=== PATIENT | male | born 1940 | race Caucasian/White ===

== ENCOUNTER 2017-04-16 16:12 | Inpatient (IN) | payer MEDICARE ==
[~2017-04-16] VITALS: Ht 180.3 cm; Wt 119.2 kg
[2017-04-16] VITALS (17 sets, daily range): BP systolic 100–173; BP diastolic 46–88; PULSE 71–105; RESP 13–25; O2SAT 94–95
[~2017-04-16 16:12] MED LIST: ASPI-973 PO; HYDR25TA4 PO; LISI-567 PO; LOVA20TA PO
--- NOTE | 2017-04-16 16:24 | ED.REPORT ---
HPI-Chest Pain 40 and Over Date of Service Apr 16, 2017 ED Provider: Dr. Dinero Pt is a 76 y/o male w/ a hx of HTN, HLD, COPD, presenting to the ED due to profuse diaphoresis onset prior to arrival. The patient had a pharmacological stress test today which was deemed abnormal and left the hospital to go to [facility]. At 16:20 he began to experience persistent upper back pain, profound diaphoresis, nausea, and dyspnea. Due to the abnormal stress test, an appointment with engine mechanic Dr. Mcqueen was made for him tomorrow. The patient states he has been experiencing similar back pain intermittently with exertion for the past 1 month which is why he had the stress test performed. He takes ASA daily but was told to not take any today because of the stress test. He is not nauseated at time of interview. He denies any history of previous MS. Stress test impression below: Abnormal study. Moderate to large reversible perfusion defect involving the mid to distal anteroseptal myocardium as well as the apex, in keeping with ischemia. Associated decreased wall thickening and segmental hypokinesis. Decreased exercise capacity. Normal left ventricle stress ejection fraction. Nursing Notes Stated Complaint: HEART ATTACK SYMPTOMS Nursing Notes Reviewed: Yes ([employer], [email or web address] not reconciled) Allergies: Coded Allergies: No Known Allergies (Verified Allergy, Unknown, 04/16/17) Scheduled Aspirin (Aspirin) 81 Mg Tablet 81 MG PO DAILY Beclomethasone Dipropionate (Qvar) 8.7 Gm Aer.w.adap 1 PUFF INHALATION BID Hydrochlorothiazide (Hydrochlorothiazide) 25 Mg Tablet 25 MG PO DAILY Lisinopril (Lisinopril) 20 Mg Tablet 20 MG PO QPM Lovastatin (Lovastatin) 20 Mg Tablet 20 MG PO HS Metoprolol Succinate ER (Metoprolol Succinate ER) 25 Mg Tab.er.24h 12.5 MG PO DAILY Tiotropium [place] (Spiriva) 18 Mcg Cap.w.dev 18 MCG IH DAILY Scheduled PRN Albuterol HFA (Proair HFA) 8.5 Gm Hfa.aer.ad 2 PUFFS INHALATION Q4H PRN PRN For Shortness of Breath Nitroglycerin SL (Nitroglycerin SL) 0.4 Mg Tab.subl 0.4 MG SL Q5MIN PRN PRN For Chest Pain General Time Seen by MD: 16:26 Chief Complaint Back pain Hx Obtained From: Patient Arrived By: Walk-in Sudden in Onset?: No Onset Occurred: Just prior to arrival Symptom Duration: Since onset Location: : Back Quality: Painful Severity: Current: Moderate Severity: Maximum: Moderate Recent Healthcare: Recent doctor visit, Previous diagnosis Past Medical History Past Medical History Notes: Had stress test today (04/16/17): Stress test impression below: Abnormal study. Moderate to large reversible perfusion defect involving the mid to distal anteroseptal myocardium as well as the apex, in keeping with ischemia. Associated decreased wall thickening and segmental hypokinesis. Decreased exercise capacity. Normal left ventricle stress ejection fraction. Past Medical History Hypertension Hyperlipidemia COPD Reports: Coronary artery disease (diagnosed today 04/16/17) Past Surgical History Denies Family History Noncontributory Smoking History Former Smoker Social History Alcohol Use: "Social" Drug Use: Denies drug use Ambulatory Status Independent Review of Systems Constitutional: Denies: Chills, Fever Respiratory: Denies: Non-productive cough, Shortness of breath Cardiovascular: Reports: Dyspnea on exertion GI: Reports: Nausea, Denies: Abdominal pain, Vomiting Musculoskeletal: Reports: Back pain Skin: Reports Diaphoresis Complete sys rev & neg: except as marked. Physical Exam Initial Vital Signs Vital Signs (First) Date Time Temp Pulse Resp B/P Pulse Ox O2 Delivery O2 Flow Rate FiO2 04/16/17 16:30 36.2 105 24 173/88 95 Room Air Initial VS: Reviewed, Vital signs abnormal Head / Eyes: Atraumatic, Normocephalic, PERRL ENT: Mucous membranes moist, Conjunctiva normal, No scleral icterus Neck: Supple, Full range of motion Extremities: Vascular intact, Neuro intact, No swelling Neurologic: Alert, Oriented, Nonfocal Psychiatric: Mood/affect normal, Behavior normal, Normal thought content General/Constitutional: Awake, Alert, Cooperative, Not toxic appearing Distress / Hydration: Positive: Distress mild Appearance / Presentation: Positive: Uncomfortable Respiratory / Chest: Breath sounds NL, Breath sounds = bilat, No respiratory distress, No rales, No rhonchi, No wheezing, No retractions, No stridor Cardiovascular: Regular rhythm, Heart sounds NL, No gallop, No murmurs, No rubs , Cap refill not delayed, Peripheral circulation NL Heart Rate / Rhythm: Positive: Tachycardia Hypertensive Abdomen: Atraumatic, Soft, Non-tender Skin: Atraumatic, Color NL, Warm Color / Condition: Positive: Diaphoresis present Interpretation & Diagnostics Interpretation & Diagnostics: Please see that the patient had a stress test done earlier today that is abnormal for an area of reversible ischemia, with cardiac solder making laborer evalutation initially planned for tomorrow Lab Results Interpretation Result Diagram: 04/16/17 1620 04/16/17 1620 Test 04/16/17 16:20 White Blood Count 9.6th/mm3 (3.8-10.1) Red Blood Count 4.70mil/mm3 (4.40-5.80) Hemoglobin 15.3g/dL (13.8-17.2) Hematocrit 44.0% (41.0-50.0) Mean Corpuscular Volume 93.6fL (81-100) Mean Corpuscular Hemoglobin 32.6pg (27.0-35.0) Mean Corpuscular Hemoglobin Concent 34.8% (32.0-37.0) Red Cell Distribution Width 13.2% (12.3-15.4) Platelet Count 202bil/L (150-400) Neutrophils (%) (Auto) 57.1% (40-74) Lymphocytes (%) (Auto) 32.8% (14-46) Monocytes (%) (Auto) 7.1% (4-12) Eosinophils (%) (Auto) 2.6% (0-5) Basophils (%) (Auto) 0.2% (0-3) Sodium Level 130mEq/L (134-144) Potassium Level 4.0mEq/L (3.5-5.2) Chloride Level 90mEq/L (97-108) Carbon Dioxide Level 22mmol/L (18-29) Blood Urea Nitrogen 22mg/dL (8-27) Creatinine 0.94mg/dL (0.76-1.27) Estimat Glomerular Filtration Rate 83mL/min (>59) Glucose Level 175mg/dL (60-99) Calcium Level 9.7mg/dL (8.5-10.1) Magnesium Level 1.9mg/dL (1.6-2.6) Total Bilirubin 0.7mg/dL (0.0-1.2) Aspartate Amino Transf (AST/SGOT) 26U/L (0-50) Alanine Aminotransferase (ALT/SGPT) 20U/L (0-44) Alkaline Phosphatase 53U/L (25-160) Troponin T < 0.010ug/L (0.0-0.011) Total Protein 7.3g/dL (6.4-8.4) Albumin 4.4g/dL (3.4-5.0) Hold Dean Top Tube Received (Received) Lab Results Interpretation: CBC normal CMP normal (borderline hyperglycemia) Troponin #1 negative ECG Interpretation ECG Interpretation: Sinus tachycardia rate 105 ST segment depression V3-V6 No ST segment elevation Time: 16:26 Interpreted by: ED physician X-Ray Chest Interpretation Chest Xray Interpretation: IMPRESSION: No acute process. Dictated by: Marli Escobedo M.D. on 04/16/2017 at 16:59 Approved by: Marli Escobedo M.D. on 04/16/2017 at 17:00 View: Portable, 1 view Interpretation / Wet Read by: Interpret - Radiologist Re-Eval/Medical Decision Med Decision/Clinical Course This is a 76-year-old male with several risk factors to underwent a cardiac stress test today she developed classic anginal symptoms of exertional chest/ back discomfort over the past month. Stress test was markedly positive, and he was able to complete only 3 minutes of exercise before demonstrate positivity- with an area of moderate to sizable ischemia anteriorly. The patient was discharged, with outpatient plan for cardiology consultation and catheterization tomorrow. He went to [facility], were without exertion he suddenly developed back and chest discomfort with diaphoresis, nausea, and shortness of breath-to return to the emergency room and having active discomfort, stating he is concerned that he is having a heart attack. The patient appears ill: He is diaphoretic, clutching his chest, diaphoretic, hypertensive, and tachycardic. He had not yet had his daily aspirin. He has no overt findings of heart failure, and has no jugular vein distention, clear lungs, and normal heart tones. He has trace edema in the ankles. His EKG reveals ST depression suggestive of ischemia in V3 through V6, and I do not have access to prior old EKGs for comparison. However is clinical presentations highly concerning. Given his clinical presentation, given the ST depression identified on EKG, and given he just had a stress test diagnosis of coronary artery disease, I consulted cardiology. The initial diver pumper was with another procedure, and a second intervention was Dr. Garcia came and saw the patient, and the patient's being taken to the Card Checker for further management. He requests to be the customer service sales consultant, and the hospitalist being the admitting provider. The patient received aspirin, nitroglycerin, Dilaudid, Zofran, and was started on heparin. At time of admission the patient's clinically improved, but still having some back discomfort. Source of Hx: Old records Time of Eval: 16:38 Re-Evaluation/Progress Note: Pt rechecked. Informed pt of need for admission. Pt understands and agrees with plan for admission. All questions addressed. Consultation #1: Referral / Consult Name: Lino Hernandez MD Consulted With: Cardiology Call Returned at: 16:31 Link Knitting Machine Operator: Agrees with eval, Agrees with plan Note: Recommends contact [place] Consultation #2: Referral / Consult Name: Chao Edward MD Consulted With: Cardiology Call Returned at: 16:35 Link Knitting Machine Operator: Will see patient, Agrees with eval, Agrees with plan, Accepts admit Note: Admits to solder making laborer. Differential Diagnosis: Positive: Acute coronary syndrome, Acute myocardial infarct, Myocardial infarction, Negative: Asthma exacerbation, Congestive heart failure, Dysrhythmia, Esophageal rupture, Gun shot wound chest, Lorrie-Sears syndrome, Mitral stenosis, Mitral valve prolapse, Musculoskeletal pain, Pneumomediastinum, Pneumonia, Pneumothorax, Pulmonary edema, Pulmonary embolism, Rib fracture, Stab wound chest Counseled Regarding: Diagnosis, Lab results, Need for admission Discharge & Departure Primary Impression: Unstable angina Additional Impression: NSTEMI (non-ST elevated myocardial infarction) Disposition: ADMITTED TO HOSPITAL Discharge Condition All VS Reviewed: Yes Condition: Stable Referrals: Tracie Velazquez (PCP) Crit Care Except Billable Proc Time Spent: 30-74 minutes Services Performed: Patient management by me, Time spent at bedside, Reviewing test results, Reviewing imaging, Discussing patient care, Documentation in record Scribe Attestation Portions of this note were transcribed by Srikanth May. I, Dr. Dinero, personally performed the history, physical exam and medical decision-making; I reviewed and confirmed the accuracy of the information in the transcribed note. Signed by Jana Doty, 04/16/17 - [id number] copies to: Tracie Velazquez Matthew F MD Apr 16, 2017 16:23 SRIKANTH MAY Apr 16, 2017 16:31
[2017-04-16] MEDS ORDERED: Ondansetron 2 mg/mL 2 mL Inj IVPUSH ONE (16:25)
[2017-04-16] MEDS ORDERED: MeTOProlol 1 mg/mL 5 mL Inj IVPUSH ONE (16:30)
[2017-04-16] MEDS ORDERED: HYDROmorphone 0.5 mg/0.5 mL iSecure Syringe IVPUSH ONE (16:30)
[2017-04-16 16:32] LABS: BASOPHILS % (AUTO) 0.2 % (0-3); EOSINOPHILS % (AUTO) 2.6 % (0-5); MONOCYTES % (AUTO) 7.1 % (4-12); Mean Corpuscular Hemoglobin 32.6 pg (27.0-35.0); Mean Corpuscular Volume 93.6 fL (81-100); NEUTROPHILS % (AUTO) 57.1 % (40-74); Platelet Count 202 bil/L (150-400)
[2017-04-16] MEDS ORDERED: Heparin 5,000 Unit/mL Inj IVPUSH ONE ×2 (16:35→17:00)
[2017-04-16] MEDS ORDERED: Heparin 25,000 Unit/500 mL 0.45% NS Premix IV ONE (16:47)
[2017-04-16] MEDS ORDERED: Heparin 1,000 Units/500 mL NS Premix IV ONE (17:01)
[2017-04-16] MEDS ORDERED: Nitroglycerin 50,000 mcg/250 mL D5W Premix IV ONE (17:01)
[2017-04-16] MEDS ORDERED: Heparin 1,000 Unit/mL 10 mL Inj ONE (17:01)
[2017-04-16] MEDS ORDERED: Heparin 10,000 Unit/1,000 mL NS Premix IV ONE ×2 (17:02→17:50)
[2017-04-16] MEDS ORDERED: Dextrose 5% 250 ML IV ONE (17:02)
[2017-04-16] MEDS ORDERED: NitroPRUSSIDE 25,000 mCg/mL 2 mL Inj IV ONE (17:02)
--- NOTE | 2017-04-16 17:02 | DRSVH ---
PROCEDURE: X-RAY CHEST ONE VIEW, PORTABLE ([id number]) INDICATIONS: chest pain TECHNIQUE: One view of the chest was acquired. COMPARISON: [facility], CR, CHEST 2VW, 10/21/2014, 8:10. FINDINGS: Surgical changes and devices: None. Lungs and pleura: No pleural effusions or pneumothorax. Lungs are clear. Mediastinum: Mediastinal contours appear normal. Heart size is normal. Bones and chest wall: No suspicious bony lesions. Overlying soft tissues appear unremarkable. IMPRESSION: No acute process. Dictated by: Marli Escobedo M.D. on 04/16/2017 at 16:59 Approved by: Marli Escobedo M.D. on 04/16/2017 at 17:00
[2017-04-16 17:05] LABS: TROPONIN T < 0.010 ug/L (0.0-0.011)
[2017-04-16] MEDS ORDERED: fentaNYL-PF 50 mCg/mL 2 mL Inj ONE (17:06)
[2017-04-16 17:09] LABS: Magnesium 1.9 mg/dL (1.6-2.6)
[2017-04-16] MEDS ORDERED: ALBU8.5H2 INHALATION (19:17)
[2017-04-16] MEDS ORDERED: BECL8.7A6 INHALATION (19:17)
[2017-04-16] MEDS ORDERED: TIOT18CA3 IH (19:17)
[2017-04-16] MEDS ORDERED: NITR0.4T6 SL (19:17)
[2017-04-16] MEDS ORDERED: METO25TA99 PO (19:17)
--- NOTE | 2017-04-16 19:17 | NUR ---
Recovery [facility]REG staff recovering in 2013 until CCU has staff available. Pt received in 2013 at 1835. VSS. Stated 3/10 back discomfort, not like the pain that brought him in, which resolved after HOB able to be lifted to 30degrees. NTG at 20mcg/min per order. Dr. Edward called and heparin continued per Cardiac protocol. NS at 100ml/hr per order. Right groin stable without bleeding or hematoma. Groin precautions reviewed and frequent reminders given. Tele SR with PVC and bigeminal. Taking po fluids without nausea. Adm Margauxit RN working on admit. Report to Karen Zarate RN.
[2017-04-16] MEDS ORDERED: 0.9% Sodium Chloride 1,000 ML IV SCH (19:38)
[2017-04-16] MEDS ORDERED: Ondansetron 2 mg/mL 2 mL Inj IVPUSH PRN ×2 (19:40→20:15)
[2017-04-16] MEDS ORDERED: Polyethylene Glycol (PEG) 17 Gm Powder PO PRN (19:40)
[2017-04-16] MEDS ORDERED: Alum-Mag Hydrox-Simeth 30 mL Suspension PO PRN (19:40)
[2017-04-16] MEDS ORDERED: Atropine 1 mg/10 mL (Code) Syringe IVPUSH PRN ×2 (19:40→20:15)
[2017-04-16] MEDS ORDERED: Atropine 1 mg/10 mL (Code) Syringe IVPUSH ONE (19:42)
[2017-04-16] MEDS ORDERED: Sodium Chloride LOK Flush 10 mL Syringe IVFLUSH PRN (20:15)
[2017-04-16] MEDS ORDERED: 0.9% Sodium Chloride 400 ML (4 HRS) IV ONE (20:15)
[2017-04-16] MEDS ORDERED: Nitroglycerin 50 mg/250 mL D5W Premix IV SCH (20:15)
[2017-04-16] MEDS ORDERED: Heparin 25K Unit/500mL 0.45 NS 25,000 UNIT in IV Premix 1 EACH IV SCH (20:20)
--- NOTE | 2017-04-16 21:23 | PCM.HPMED ---
Subjective Date of Service Apr 16, 2017 Primary Provider: Admitting Physician: Primary Care Physician: Tracie Velazquez Attending Physician: Chao Edward MD Admit Status: From the Emergency Department Chief Complaint: Upper back pain, diaphoresis, nausea and dyspnea History of Present Illness: Admitting Jaclyn is a 76-year-old male with past medical history remarkable for hypertension and hyperlipidemia and COPD who presents to the [facility] emergency Department with persistent upper back pain, dyspnea, nausea and diaphoresis. The patient was seen today for a cardiac pharmacologic stress test which was deemed abnormal however the patient was discharged from the hospital with a follow-up appointment made with extractor filler Dr. Mcqueen for tomorrow April 17 at 9:30 AM. The patient states that he has been suffering with back pain described as medial to his right scapula and feels similar to somebody pounding on his back which worsens with exertion and improves with rest for approximately the last 6 weeks which was why he had a exercise EKG stress test last week and a follow-up nuclear medicine pharmacologic stress test today. At approximately 1620 the patient began to experienced symptoms of severe persistent upper back pain, profound diaphoresis, nausea and dyspnea while walking around [facility]. The patient states that his back pain in [facility] was more severe than ever before rated as a 10 out of 10 but with the same distribution and consistency. The patient denies any radiation of the pain into his jaw or arms. The patient states at the time of his stress test he had back pain but was significantly less severe rated at a 3 out of 10. The patient states that he sat down in the parking lot for 3 minutes prior to driving to [facility] emergency Department. He denies any history of previous [place]. The patient denies any review of systems consistent with headache, vomiting , diarrhea, numbness or tingling in his hands or feet. The patient states that his been seen by his PCP recently for his back pain and shortness of breath where he was diagnosed with COPD after spirometry and placed on 3 separate inhalers. The patient was seen in [facility] ED and diagnosed with an NSTEMI with ischemic ST changes on ECG were an immediate cardiology consultation was placed and the patient was taken to the cardiac label stitcher. Reports from the cardiology label stitcher nursing staff indicate that a critical lesion in the patient's LAD was unable to be intervened upon and he will be taken back to the cardiac label stitcher on April 17 in the a.m. Stress test impression below: Abnormal study. Moderate to large reversible perfusion defect involving the mid to distal anteroseptal myocardium as well as the apex, in keeping with ischemia. Associated decreased wall thickening and segmental hypokinesis. Decreased exercise capacity. Normal left ventricle stress ejection fraction. Review of Systems: A comprehensive review of systems was obtained and all are negative except for what is included in the history of present illness. Allergies Coded Allergies: No Known Allergies (Verified Allergy, Unknown, 04/16/17) Home Medications Aspirin 81 MG PO DAILY Hydrochlorothiazide 25 MG PO DAILY Metoprolol succinate ER 12.5 mg daily Lisinopril 20 MG PO DAILY Lovastatin 20 MG PO HS Albuterol HFA Qvar 1 puff twice a day Spiriva one puff daily Nitroglycerin SL 0.4 mg when necessary PMH Hypertension Hyperlipidemia COPD Kidney Stones GERD Reports: Coronary artery disease (diagnosed today 04/16/17) Surgical History Cholecystectomy Appendectomy Family History 3 Brothers have COPD and chronic respiratory failure Father had lung cancer, diverticulosis lived to 87 Mother lived to be 88 Social History Occupation: retired mechanical systems engineer and car sales Hx Alcohol Use: No Hx Substance Use: No Hx Tobacco Use: Yes Smoking Status: Former Smoker (quit 20 years prior) Years of Smokin Living Arrangement: with Family Exam Vital Signs Vital Sign - Last Date Time Temp Pulse Resp B/P Pulse Ox O2 Delivery O2 Flow Rate FiO2 04/16/17 19:23 36.6 88 16 106/56 95 Nasal Cannula 2.00 Exam General: Obese senior patient appears resting comfortably in a CCU bed in no acute distress Eyes: Pupils equal round and reactive to light, extraocular motion intact, anicteric sclera, noninjected conjunctiva HENT: Normocephalic atraumatic, moist mucous membranes without central cyanosis , oropharynx clear without cobblestoning Neck: Supple, trachea midline, no thyromegaly, no JVD or carotid bruits noted Cardiovascular: Distant heart sounds, Regular rate and rhythm, no murmurs rubs or gallops noted Lungs: Clear to auscultation bilaterally without wheezing or rhonchi Abdomen: Soft, nontender, distended at baseline, tympanic to percussion, no organomegaly noted : No Carmona catheter in place Extremities: Moderate pitting edema in bilateral lower extremities worse than right and left, no cyanosis or clubbing. Pulses intact bilaterally radial and dorsalis pedis, right femoral groin site is without hematoma or erythema Skin: Warm and dry, venous stasis changes noted in the left and right lower extremities bilaterally Neuro: Nonfocal neurologic exam, Cranial nerves II through XII are grossly intact Psych: Normal mood and affect Lab and Diagnostics Result Diagram: 04/16/17 1620 04/16/17 1620 X-Rays, CTs and MRIs X-RAY CHEST ONE VIEW, PORTABLE IMPRESSION: No acute process. Approved by: Marli Escobedo M.D. on 04/16/2017 at 17:00 Assessment & Plan Admitting Jaclyn is a 76-year-old male with past medical history remarkable for hypertension and hyperlipidemia and COPD who presents to the [facility] emergency Department with persistent upper back pain, dyspnea, nausea and diaphoresis. # Acute non-ST elevation myocardial infarction - In the [facility] emergency Department the patient had ST depression concerning for ischemia - On review of records the patient has had abnormal cardiac pharmacologic stress test performed on April 16 - Patient was taken to the cardiac label stitcher where critical lesions were reportedly noted in the LAD and RCA however the LAD was not able to be intervened upon by the patient will be taken back to the label stitcher on April 17 - Heart healthy diet, converted to nothing by mouth after midnight in preparation for cardiac catheterization - Heparin drip and nitroglycerin drip per cardiology recommendations - Currently holding most outpatient antihypertensives as the patient is a low normotensive - Cardiac rehabilitation - Lisinopril 20mg for cardiac remodeling # Acute mild hyponatremia - Sodium of 130 on admission - NS at 100 an hour for 4 hours per cath protocol # Acute mild hyperglycemia - Glucose of 175 at admission - No history of diabetes - Hemoglobin A1c ordered - Low correction scale regular insulin # Chronic Hypertension - Patient takes metoprolol ER, hydrochlorothiazide, lisinopril - Currently holding most outpatient antihypertensives as patient is low normotensive - Lisinopril 20mg for cardiac remodeling # Chronic Hyperlipidemia - Patient is on a home Lovastatin regimen - Atorvastatin 80 mg given acute coronary syndrome # Chronic obstructive pulmonary disease - Patient is on combination therapy with Qvar, Symbicort, albuterol rescue inhaler - Continue home inhaler therapy # History of gastroesophageal reflux disease - Patient is currently not on any prescription therapies - Famotidine IV while critically ill on heparin drip DVT prophylaxis: Currently on a heparin drip GI prophylaxis: Famotidine IV CODE STATUS full The patient is admitted to inpatient status with expected length of stay greater than to midnights given presenting symptoms, likely diagnosis, possible complications, and required treatment. Pain Evaluation: Adequate Pain Control GI Prophylaxis: Not indicated VTE Prophylaxis Indicated: Meets Criteria for Anticoag Therapy VTE Prophylaxis: Other (heparin drip) Resuscitation Status: CPR: Attempt Resuscitation Attending Statement The patient was seen and examined together with house staff on 04/16/2017 and I agree with the history, exam and plan as outlined in the note above. Bryant Beltran DO Apr 16, 2017 19:38 Elham Elena DO Apr 17, 2017 07:10
[2017-04-16] MEDS ORDERED: Pantoprazole 4 mg/mL 10 mL Inj IVPUSH SCH (21:25)
[2017-04-16] MEDS ORDERED: Glucose 40% Oral Gel 15 Gm Tube PO SCH (21:55)
[2017-04-16] MEDS ORDERED: Dextrose 10% 250 ML IV PRN ×2 (21:55)
--- NOTE | 2017-04-16 22:51 | CONS ---
[address] [address] CONSULTATION REPORT PATIENT: LALA JOSÉ : 1940 MR#: [id number] ADMIT: 04/16/2017 JOB ID: [id number] DATE OF SERVICE: 04/16/2017 REASON FOR CONSULTATION: Chest pain. REQUESTED BY: Dr. Lorenzo Dinero. HISTORY OF PRESENT ILLNESS: Thank you for referring this very pleasant gentleman. He has been having off and on discomfort in his back for the last month to month and a half. It occurred with [id number]-[id number] exertion. For instance, mowing his lawn or picking up anything heavy. He would get markedly short of breath. It was initially ascribed to COPD. He was subsequently referred to a chiropractor. Finally, his primary care physician advised a stress test. This stress test was done earlier today. The stress test was markedly abnormal. He had reduced functional capacity. He could barely complete stage 1 of Momo protocol. His stress test showed a large area of anterior ischemia consistent with disease in the LAD. The patient was scheduled for a heart catheterization tomorrow. The patient went to [facility] today. While he was in [facility], he started getting short of breath. This was accompanied by diaphoresis as well as an upset stomach. He felt like throwing up. He had the same pain in his back as well. He came back to the emergency department. EKG showed diffuse ST-T abnormality. I was asked to see him urgently. At the time of interview, the patient's chest discomfort had all but settled. candlemaking laborer had already been activated. PAST MEDICAL HISTORY: Hypertension, dyslipidemia, denies diabetes, prior strokes. MEDICATIONS AT HOME: He takes three medications, two for his blood pressure, one for his cholesterol. He is not sure of the names. ALLERGIES: None. PRIOR SURGICAL HISTORY: He has had a gallbladder removed. FAMILY HISTORY: Noncontributory. Negative for premature coronary artery disease. PERSONAL HISTORY: He quit smoking 18 years ago. 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 He denies any alcohol abuse. REVIEW OF SYSTEMS: Comprehensive review of system was done and is as per HPI. More pertinently no GI or bleeding. No upcoming surgeries. No strokes. No TIAs. EXAMINATION: Obese, elderly gentleman in mild distress. He appears to be somewhat anxious. Neck is supple. No JVD. Chest: Clear. Heart sounds: S1, S2, regular. No gallops. No murmurs. Abdomen is soft. Extremities 1+ edema. Hyperpigmentation of both lower extremities is noted. Distal pulses were diminished. BASKET MAKER: Alert and oriented x3. ASSESSMENT/PLAN: This gentleman presents with unstable angina. He needs to have urgent angiography given the fact that he is having chest discomfort with minimal activity. I have discussed the risks, and treatment options available to the patient. He is willing to proceed ahead with angiography. Further management will depend upon the results of the angiogram. In the interim, he has been given IV heparin and aspirin. I have deliberately held off on Plavix just in case he has left main disease and needs to be sent for surgery.
[2017-04-16] MEDS: 0.9% Sodium Chloride 1,000 ML IV SCH (23:25)
[2017-04-17 01:23] LABS: APPEARANCE,URINE CLEAR (CLEAR,HAZY); COLOR,URINE YELLOW (YELLOW); OCCULT BLOOD,URINE NEGATIVE (NEGATIVE); UROBILINOGEN,URINE NORMAL (NORMAL)
[2017-04-17] MEDS: Insulin Human REGular 300 Unit/3 mL Inj SUBQ SCH ×2 (02:30→08:30)
[2017-04-17] MEDS: Heparin Protocol Boluses IVPUSH PRN ×2 (02:50→09:37)
--- NOTE | 2017-04-17 05:10 | NUR ---
Cardiac Received patient from GREG RN, recovery continued, see charting. Patient's tele shows SR with frequent PVCs, runs of bigeminy at times. PVCs decrease significantly during night. Nitro gtt and Heparin gtt infusing. Patient denies all chest discomfort. RG soft, non-tender with a small bruise and no hematoma. Pedal pulses equal and strong. Patient NPO at midnight from probably heart cath procedure again today.
[2017-04-17] MEDS ORDERED: Albuterol 2.5 mg/3 mL Inhalation Solution NEB PRN (07:00)
[2017-04-17 07:54] VITALS: BP 130/48; PULSE 64; RESP 12; O2SAT 97
[2017-04-17] MEDS ORDERED: Fluticasone 100 mCg Inhaler INHALATION SCH (08:30)
[2017-04-17] MEDS ORDERED: Tiotropium 18mcg/Cap 5 Capsule Inhaler Kit INHALATION SCH (08:30)
--- NOTE | 2017-04-17 10:37 | PROG NOTE ---
[address] [address] PROGRESS NOTE PATIENT: LALA JOSÉ : 1940 MR#: [id number] ADMIT: 04/16/2017 JOB ID: [id number] DATE: 04/17/2017 SUBJECTIVE: The patient is a pleasant 76-year-old with history of obesity, obstructive sleep apnea, hypertension, hypercholesterolemia, and prior history of tobacco use. He presented with acute coronary syndrome yesterday. He underwent emergent coronary angiogram, which demonstrated severe stenosis of the left anterior descending and major diagonal branch bifurcation lesion and severe stenosis of the mid right coronary artery. The lesion is heavily calcified. An attempted angioplasty by Dr. Edward was unsuccessful. He denied any chest discomfort, shortness of breath, orthopnea or PND. OBJECTIVE: The patient is resting in bed comfortably. Temperature is 36.7. Blood pressure is 120/47. Pulse 64. Body weight is 119 kg. Head and face have normal configuration. Anicteric sclerae. Moist mucosa. Narrow oropharynx. Neck: JVP was difficult to evaluate due to nuchal obesity. Chest: Normal expansion. Lungs are clear to auscultation. Heart: The first and second heart sound normal. No murmur. Abdomen: Obese, nontender. Extremities: 1+ edema with hyperpigmentation of the skin bilaterally. No clubbing or cyanosis. Neurologic: Grossly intact. EKG this morning showed normal sinus rhythm. Normal EKG. This is improvement from yesterday. BLOOD TESTS: This morning show hemoglobin 12.9, sodium 132, potassium 4.1, chloride 96, bicarbonate 23, BUN 19, creatinine 0.73, glucose 121, hemoglobin A1c 6.1. Cholesterol 142, triglyceride 118, HDL 44, LDL 74. IMPRESSION: 1. Acute coronary syndrome. 2. Severe left anterior descending and diagonal branch bifurcation stenosis and right coronary artery stenosis. 3. Severe obesity with BMI of 36.7 kg/m2. 4. Pre diabetic. 5. History of hypertension. 6. Hypercholesterolemia. 7. History of 35-40 years smoking of at least one and half pack per day. 8. Obstructive sleep apnea not on CPAP. PLAN: I explained to the patient that he would have a better long-term outcome with coronary artery bypass surgery due to bifurcation lesion with heavily calcified artery. The patient seemed to understand and agree with the plans for transfer to [facility] for bypass surgery. He will continue on aspirin, IV heparin, IV nitroglycerin, CLEMENTINA inhibitor, beta scar and statin. Clopidogrel will be discontinued. Note: The time spent talking to the patient, cardiac surgeon and arrange transfer was 60 minutes. ALFONSO
--- NOTE | 2017-04-17 10:49 | DI95 ---
[address] [address] INTERVENTIONAL CARDIAC CATHETERIZATION PATIENT: LALA JOSÉ : 1940 MR#: [id number] ADMIT: 04/16/2017 JOB ID: [id number] DATE OF SERVICE: 04/16/2017 PROCEDURE: 1. Selective right and left coronary angiography. 2. Percutaneous coronary intervention of this chronically occluded left anterior descending. INDICATION: Abnormal stress test, class III-IV angina. PROCEDURAL DETAILS: The reader and the coders are referred to the procedure log for complete details. Briefly, it was done via right femoral approach using a 6-Yoruba system. ANGIOGRAPHIC FINDINGS: 1. Mild to moderate calcification of the coronaries is noted on fluoroscopy. 2. Left main short, no significant disease. 3. Left anterior descending ostial 20% lesion in its mid segment. It initially appeared to have a hazy-appearing lesion and given the patient's stress test, which showed anterior ischemia, this was felt to be the culprit. AURELIANO 1-2 flow was noted distally further down in the vessel. 4. Circumflex nondominant, 20% to 30% lesion proximally. No critical stenosis is noted. 5. Right coronary artery is dominant. In its mid segment it has a calcific, discrete, 80% lesion. 6. Left heart catheterization revealed an elevated LVEDP of around 24. There was no gradient upon pullback. INTERVENTIONAL REPORT: We then proceeded ahead with an intervention on this presumed thrombotic occlusion of the LAD. However, it became readily apparent that this was a chronic occlusion and the haziness actually represented heavy calcification. This, as mentioned, is a subtotal occlusion. It is a short segment occlusion. Multiple wires were used to cross this lesion starting with a Runthrough and a Whisper Keg Header 50, and we were finally able to cross this lesion with a Keg Header 200 wire. However, we could not direct the wire into the distal LAD, instead went into a moderate caliber diagonal. At that point, my goal was to do an angioplasty in that region, modify the plaque and then redirect my wire into the LAD. This lesion was extremely calcified. It was difficult to deliver a 1.5 or a 1.20 balloon across this lesion. Balloon inflation was done in the proximal part of the lesion with the hope that this would make our wire and the balloons more deliverable. However, that did not happen. At this time point, the procedure was terminated. The patient will be admitted to the hospital. I will give him the option of either bringing him back for a possible rotablation of his LAD. In the interim his medications will be optimized, so that he does not get frequent episodes of angina. The other option, of course, would be sending him for bypass surgery. All these options will be discussed with the patient.
[2017-04-17] MEDS: 0.9% Sodium Chloride 1,000 ML IV SCH (10:53)
[2017-04-17 11:44] VITALS: BP 134/61; PULSE 75; RESP 18; O2SAT 97
[2017-04-17 12:29] VITALS: BP 113/44; PULSE 76; RESP 19; O2SAT 96
--- NOTE | 2017-04-17 13:39 | PCM.DIMED ---
LALI GUADARRAMA DO 04/17/17 1337: Discharge Instructions Date of Service Apr 17, 2017 Dates of Hospitalization Apr 16, 2017 at 19:41 Discharge Diagnosis Discharge Diagnosis Acute non-ST elevation myocardial infarction/ACS Acute mild hyponatremia Pre-Diabetic, Chronic Hypertension Chronic Hyperlipidemia Chronic obstructive pulmonary disease History of gastroesophageal reflux disease Obstructive Sleep Apnea not on CPAP. GERD Acute mild hyponatremia Severe obesity with BMI of 36.7 kg/m2. Diet Discharge Diet: Heart Healthy Activity Discharge Activity: No restrictions Patient Instructions Patient Instructions It was explained to the patient that due to bifurcation lesion with heavily calcified artery, he would have a better long-term outcome with coronary artery bypass surgery. The patient seemed to understand and agree with the plans for transfer to [facility] for bypass surgery. He will continue on aspirin, IV heparin, IV nitroglycerin, CLEMENTINA inhibitor, beta scar and statin. Clopidogrel will be discontinued. Follow-up plan Follow up with your primary care physician and your jewel bearing broacher follow the procedure and discharge from hospital. Denita Li DO 04/17/17 1614: Discharge Instructions Attending's Statement The patient was seen and examined together with Dr. Guadarrama on 04/17/17 and I agree with the history, exam and plan as outlined in the note above. LALI GUADARRAMA DO Apr 17, 2017 13:37 Denita Li DO Apr 17, 2017 16:14
--- NOTE | 2017-04-17 14:00 | PCM.DC.MED ---
Discharge Summary Date of Service Apr 17, 2017 Dates of Hospitalization Date of Hospital Admission Apr 16, 2017 at 19:41 Date of Discharge: Apr 17, 2017 Providers: Admitting Physician: Regina Chairez DO Primary Care Physician: Tracie Velazquez Attending Physician: Denita Li DO Diagnosis at Time of Discharge Diagnosis at Time of Discharge Acute non-ST elevation myocardial infarction/ACS Acute mild hyponatremia Pre-Diabetic, Chronic Hypertension Chronic Hyperlipidemia Chronic obstructive pulmonary disease History of gastroesophageal reflux disease Obstructive Sleep Apnea not on CPAP. GERD Acute mild hyponatremia Severe obesity with BMI of 36.7 kg/m2. Consultations Cardiology Procedures XRay, CTs & MRIs X-RAY CHEST ONE VIEW, PORTABLE IMPRESSION: No acute process. Approved by: Marli Escobedo M.D. on 04/16/2017 at 17:00 Brief History Admitting Jaclyn is a 76-year-old male with past medical history remarkable for hypertension and hyperlipidemia and COPD who presents to the [facility] emergency Department with persistent upper back pain, dyspnea, nausea and diaphoresis. The patient was seen today for a cardiac pharmacologic stress test which was deemed abnormal however the patient was discharged from the hospital with a follow-up appointment made with body shop floorperson Dr. Mcqueen for tomorrow April 17 at 9:30 AM. The patient states that he has been suffering with back pain described as medial to his right scapula and feels similar to somebody pounding on his back which worsens with exertion and improves with rest for approximately the last 6 weeks which was why he had a exercise EKG stress test last week and a follow-up nuclear medicine pharmacologic stress test today. At approximately 1620 the patient began to experienced symptoms of severe persistent upper back pain, profound diaphoresis, nausea and dyspnea while walking around [employer] [place]. The patient states that his back pain in [facility] was more severe than ever before rated as a 10 out of 10 but with the same distribution and consistency. The patient denies any radiation of the pain into his jaw or arms. The patient states at the time of his stress test he had back pain but was significantly less severe rated at a 3 out of 10. The patient states that he sat down in the parking lot for 3 minutes prior to driving to emergency Department. He denies any history of previous PR. The patient denies any review of systems consistent with headache, vomiting , diarrhea, numbness or tingling in his hands or feet. The patient states that his been seen by his PCP recently for his back pain and shortness of breath where he was diagnosed with COPD after spirometry and placed on 3 separate inhalers. The patient was seen in [facility] ED and diagnosed with an NSTEMI with ischemic ST changes on ECG were an immediate cardiology consultation was placed and the patient was taken to the cardiac labeling strategist. Reports from the cardiology labeling strategist nursing staff indicate that a critical lesion in the patient's LAD was unable to be intervened upon and he will be taken back to the cardiac labeling strategist on April 17 in the a.m. Stress test impression below: Abnormal study. Moderate to large reversible perfusion defect involving the mid to distal anteroseptal myocardium as well as the apex, in keeping with ischemia. Associated decreased wall thickening and segmental hypokinesis. Decreased exercise capacity. Normal left ventricle stress ejection fraction. He underwent emergent coronary angiogram, which demonstrated severe stenosis of the left anterior descending and major diagonal branch bifurcation lesion and severe stenosis of the mid right coronary artery. The lesion is heavily calcified. An attempted angioplasty by Dr. Edward was unsuccessful. It was explained to the patient that due to bifurcation lesion with heavily calcified artery, he would have a better long-term outcome with coronary artery bypass surgery. The patient seemed to understand and agree with the plans for transfer to [facility] for bypass surgery. He will continue on aspirin, IV heparin, IV nitroglycerin, CLEMENTINA inhibitor, beta scar and statin. Clopidogrel will be discontinued. t Hospital Course Acute non-ST elevation myocardial infarction/ACS - Severe bifurcation of left anterior descending and diagonal branch stenosis and right coronary artery stenosis. - Heparin drip and nitroglycerin drip per cardiology recommendations - Continue Aspirin. Holding Clopidogrel. - Lisinopril 20mg - Continue BB and statin. - Transfer to [facility] for bypass surgery. Acute mild hyponatremia - Sodium of 130 on admission Pre-Diabetic, - Glucose of 175 at admission - Hemoglobin A1c 6.1 Chronic Hypertension - Patient takes metoprolol ER, hydrochlorothiazide, lisinopril - Currently holding most outpatient antihypertensives as patient is low normotensive Chronic Hyperlipidemia - Patient is on a home Lovastatin regimen - Atorvastatin 80 mg given acute coronary syndrome Chronic obstructive pulmonary disease - History of 35-40 years smoking of at least one and half pack per day. Quit 20 years ago. - Patient is on combination therapy with Qvar, Symbicort, albuterol rescue inhaler - Continue home inhaler therapy History of gastroesophageal reflux disease - Patient is currently not on any prescription therapies - Famotidine IV while critically ill on heparin drip Obstructive Sleep Apnea not on CPAP. GERD Acute mild hyponatremia Severe obesity with BMI of 36.7 kg/m2. Exam Vital Signs (Last) Date Time Temp Pulse Resp B/P Pulse Ox O2 Delivery O2 Flow Rate FiO2 04/17/17 12:29 37.0 76 19 113/44 96 Nasal Cannula 2.00 Exam General: Obese senior patient appears resting comfortably in a CCU bed in no acute distress Eyes: Pupils equal round and reactive to light, extraocular motion intact, anicteric sclera, noninjected conjunctiva HENT: Normocephalic atraumatic, moist mucous membranes without central cyanosis , oropharynx clear without cobblestoning Neck: Supple, trachea midline, no thyromegaly, no JVD or carotid bruits noted Cardiovascular: Distant heart sounds, Regular rate and rhythm, no murmurs rubs or gallops noted Lungs: Clear to auscultation bilaterally without wheezing or rhonchi Abdomen: Soft, nontender, distended at baseline, tympanic to percussion, no organomegaly noted : No Carmona catheter in place Extremities: Moderate pitting edema in bilateral lower extremities worse than right and left, no cyanosis or clubbing. Pulses intact bilaterally radial and dorsalis pedis, right femoral groin site is without hematoma or erythema Skin: Warm and dry, venous stasis changes noted in the left and right lower extremities bilaterally Neuro: Nonfocal neurologic exam, Cranial nerves II through XII are grossly intact Psych: Normal mood and affect Test 04/16/17 16:20 04/16/17 19:53 04/17/17 01:05 04/17/17 01:16 White Blood Count 9.6th/mm3 (3.8-10.1) Red Blood Count 4.70mil/mm3 (4.40-5.80) Mean Corpuscular Volume 93.6fL (81-100) Mean Corpuscular Hemoglobin 32.6pg (27.0-35.0) Mean Corpuscular Hemoglobin Concent 34.8% (32.0-37.0) Red Cell Distribution Width 13.2% (12.3-15.4) Platelet Count 202bil/L (150-400) Neutrophils (%) (Auto) 57.1% (40-74) Lymphocytes (%) (Auto) 32.8% (14-46) Monocytes (%) (Auto) 7.1% (4-12) Eosinophils (%) (Auto) 2.6% (0-5) Basophils (%) (Auto) 0.2% (0-3) Total Bilirubin 0.7mg/dL (0.0-1.2) Aspartate Amino Transf (AST/SGOT) 26U/L (0-50) Alanine Aminotransferase (ALT/SGPT) 20U/L (0-44) Alkaline Phosphatase 53U/L (25-160) Total Protein 7.3g/dL (6.4-8.4) Albumin 4.4g/dL (3.4-5.0) Hold Dean Top Tube Received (Received) Hemoglobin A1c 6.1% (4.8-5.6) Hold Urine Received (Received) Urine Color Yellow (YELLOW) Urine Appearance Clear (CLEAR,HAZY) Urine pH 6.0 (5.0-8.0) Urine Specific [place] 1.005 (1.003-1.035) Urine Protein Negativemg/dL (NEG,TRACE) Urine Glucose (UA) Negativemg/dL (NEGATIVE) Urine Ketones Negativemg/dL (NEGATIVE) Urine Occult Blood Negative (NEGATIVE) Urine Nitrite Negative (NEGATIVE) Urine Bilirubin Negative (NEGATIVE) Urine Urobilinogen Normalmg/dL (NORMAL) Urine Leukocyte Esterase Negative (NEGATIVE) Urine RBC 0-2/hpf (0-2) Urine WBC 0-5/hpf (0-5) Urine Epithelial Cells Occasional/hpf (NONE-MOD) Urine Crystals None seen (NONE SEEN) Urine Bacteria None/hpf (NONE-FEW) Urine Hyaline Casts None/lpf (NONE) Urine Granular Casts None seen (NONE SEEN) Urine Waxy Casts None seen (NONE SEEN) Urine Red Blood Cell Casts None seen (NONE SEEN) Urine White Blood Cell Casts None seen (NONE SEEN) Urine Mucus None seen (None Seen) Urine Trichomonas None seen (NONE SEEN) Urine Yeast None (NONE SEEN) Urinalysis Comment None Urine Culture Reflexed Not indicated Test 04/17/17 02:05 04/17/17 07:50 Hemoglobin 12.9g/dL (13.8-17.2) Hematocrit 37.5% (41.0-50.0) Sodium Level 132mEq/L (134-144) Potassium Level 4.1mEq/L (3.5-5.2) Chloride Level 96mEq/L (97-108) Carbon Dioxide Level 23mmol/L (18-29) Blood Urea Nitrogen 19mg/dL (8-27) Creatinine 0.73mg/dL (0.76-1.27) Estimat Glomerular Filtration Rate 111mL/min (>59) Glucose Level 121mg/dL (60-99) Calcium Level 8.8mg/dL (8.5-10.1) Magnesium Level 2.0mg/dL (1.6-2.6) Triglycerides Level 118mg/dL (0-149) Cholesterol Level 142mg/dL (100-199) LDL Cholesterol, Calculated 74.400mg/dL (0-99) VLDL Cholesterol 23.600mg/dL HDL Cholesterol 44mg/dL (>39) Cholesterol/HDL Ratio 3.23 (0.0-4.4) Thyroid Stimulating Hormone (TSH) 2.020uIU/mL (0.450-4.500) Activated Partial Thromboplast Time 47.4sec (22.8-33.0) Troponin T 0.424ug/L (0.0-0.011) Discharge Medications Discharge Medications Aspirin (Aspirin) 81 Mg Tablet 81 MG PO DAILY (Reported) Beclomethasone Dipropionate (Qvar) 8.7 Gm Aer.w.adap 1 PUFF INHALATION BID ( Reported) Hydrochlorothiazide (Hydrochlorothiazide) 25 Mg Tablet 25 MG PO DAILY (Reported ) Lisinopril (Lisinopril) 20 Mg Tablet 20 MG PO QPM (Reported) Lovastatin (Lovastatin) 20 Mg Tablet 20 MG PO HS (Reported) Metoprolol Succinate ER (Metoprolol Succinate ER) 25 Mg Tab.er.24h 12.5 MG PO DAILY (Reported) Tiotropium [place] (Spiriva) 18 Mcg Cap.w.dev 18 MCG IH DAILY (Reported) As needed Albuterol HFA (Proair HFA) 8.5 Gm Hfa.aer.ad 2 PUFFS INHALATION Q4H PRN PRN For Shortness of Breath (Reported) Nitroglycerin SL (Nitroglycerin SL) 0.4 Mg Tab.subl 0.4 MG SL Q5MIN PRN PRN For Chest Pain (Reported) Followup Plan Disposition: Transfer to [facility] for cardiac intervention. Follow-up plan Follow up with your primary care physician and your body shop floorperson follow the procedure and discharge from hospital. Discharge Diet: Heart Healthy Discharge Activity: No restrictions Patient Instructions It was explained to the patient that due to bifurcation lesion with heavily calcified artery, he would have a better long-term outcome with coronary artery bypass surgery. The patient seemed to understand and agree with the plans for transfer to [facility] for bypass surgery. He will continue on aspirin, IV heparin, IV nitroglycerin, CLEMENTINA inhibitor, beta scar and statin. Clopidogrel will be discontinued. Time spent Greater than 35 minutes. Attending Statement The patient was seen and examined together with Dr. Guadarrama on 04/17/17 and I agree with the history, exam and plan as outlined in the note above. LALI GUADARRAMA DO Apr 17, 2017 13:43 Denita Li DO Apr 17, 2017 19:01
--- NOTE | 2017-04-17 14:10 | DRSVH ---
[facility] [address] [place] [address] Echocardiogram Report Name: LALA JOSÉ PStudy Date: Height: 71 in Hospital Exam Location: [facility] Weight: 26 3 lb Gender: Other BSA: 2.4 m2 : 1940 Age: 76 yrs BP: 113/44 mmHg Reason For Study: POST-STEMI Ordering Physician: HOSPITALIST [facility] Performed By: Maninder Workman Referring Physician: JOSSUE JAMA Interpretation Summary 1) Normal left ventricular thickness, size, wall motion, and systolic function (EF 65-70%). 2) Normal right ventricular size and function. 3) Mildly sclerotic aortic valve with mildly reduced leaflet mobility. No aortic stenosis is present. 4) Mild pulmonary hypertension present with estimated systolic pulmonary pressures of 43mmHg. 5) No prior Echo available for comparison. Consider repeat Echo in 5 years for serial monitoring of the aortic valve, earlier if clinically indicated. Procedure: A two-dimensional transthoracic echocardiogram with color flow and Doppler was performed. The study quality was technically adequate. There is no prior echocardiogram noted for this patient. The patient was in normal sinus rhythm during the exam. Left Ventricle: The left ventricle is normal in size. There is normal left ventricular wall thickness. The ejection fraction is estimated to be 65-70%. Assessment of diastolic parameters indicates a relaxation abnormality of the left ventricle, consistent with normal filling pressures. Right Ventricle: The right ventricle is normal in size, thickness and function. Atria: The left atrium is borderline dilated. Right atrial size is normal. The interatrial septum is intact with no evidence for an atrial septal defect. Mitral Valve: The mitral valve leaflets are mildly calcified. There is mild mitral regurgitation. MR is mid to late systolic. Aortic Valve: The aortic valve is trileaflet. Leaflet mobility is mildly reduced. The aortic valve is slightly calcified. There is no hemodynamically significant valvular aortic stenosis. No aortic regurgitation is present. Tricuspid Valve: The tricuspid valve is normal. There is mild tricuspid regurgitation. The right ventricular systolic pressure is estimated at 43 mmHg assuming a right atrial pressure of 8 mm Hg. Pulmonic Valve: The pulmonic valve is normal in structure and function. There is no pulmonic valvular regurgitation. Great Vessels: The aortic root is normal size. The ascending aorta is at the upper limits of normal in size. The pulmonary artery is normal size. The IVC is dilated (diameter is greater than 2.1 cm) yet it collapses greater than 50% with a sniff. This suggests a right atrial pressure of 8 mm Hg. Pericardium/ Pleura There is no pericardial effusion. There is no pleural effusion. MMode/2D Measurements & Calculations LVIDd: 5.3 cm RA long axis LVOT diam LVIDs: 3.3 cm LA A2 area: 21.9 cm FS: 36.3 % LA A4 area: 26.1 cm RA area AoV Opening IVSd: 1.0 cm LA length (vol): 6.4 cm LVPWd: 0.99 cm LA vol: 75.8 ml : 22.3 cm Ao root diam LA vol index RA vol : 68.0 ml asc Aorta RA Diam: 3.8 cm IVC diam: 2.2 cm : 28.7 mm2 LV zhou. diameter/BSA LV sys. diameter/BSA RVD1 (basal) TAPSE: 2.3 cm (cm/m^2): 2.2 (cm/m^2): 1.4 Doppler Measurements & Calculations Ao V2 max MV E max mack MV E/A: 0.84 TR max mack : 221.1 cm/sec : 96.9 cm/sec Med Peak E' Mack : 296.4 cm/sec Ao max P.5 mmHg MV A max mack TR max PG Ao mean P.8 mmHg : 115.7 cm/sec E/E' med: 14.4 : 35.1 mmHg LVOT Max Mack Lat Peak E' Mack PA V2 max : 138.9 cm/sec : 112.0 cm/sec GLORIA(I,D): 2.8 cm E/E' lat: 13.9 PA mean PG sev ratio: 0.67 E/e' average : 2.4 mmHg MV dec time: 0.22 sec Ao V2 mean LV V1 max PG PA V2 mean : 145.2 cm/sec : 74.5 cm/sec Ao V2 VTI: 41.7 cmLV V1 VTI GLORIA(V,D): 2.7 cm2 : 27.7 cm GLORIA indexed to BSA (cm^2/m^2): 1.2 Reading Physician:02:09 PM
--- NOTE | 2017-04-17 14:30 | NUR ---
Discharge to [place]: Report called Rahul Schaeffer RN at [facility]. Patient able to ambulate to BSC and stand at bedside without report of CP, Dizziness or SOB with increased activity. Patient is A&O X3. MCKAY. Tele: Sinus 60-80s. SpO2: high 90s on 2L oxygen. VSS. Heparin gtt at 1100u/hr, Nitro gtt 20mcg/min and NS 80mL/hr via PIV. R groin site has minimal bruising, soft non tender to touch, small amount of dry sanguineous drainage under bio occlusive dressing. Dorsalis pedis strong and equal bilaterally. Patient verbalizes understanding of plans to transfer to [facility] for CABG. Patients Frannie has been notified of transfer. Patient exited unit via stretcher with all personal belongings and was transported to [facility] via ALS ambulance at 1422.
[2017-04-18] MEDS ORDERED: Heparin 5,000 Unit/mL Inj SUBQ SCH (08:30)
== END 2017-04-17 14:20 | disposition short-term general hospital (02) | DRG 251 ==
LOC: SED 16:12 → SPI 17:31 → CCU 19:41
PROVIDERS: ADMIT Internal Medicine; ATTEND Internal Medicine
PROC: 02703ZZ Dilation of Coronary Artery, One Artery, Percutaneous Approach (ICD-10-PCS; principal; 2017-04-16)
PROC: 4A023N7 Measurement of Cardiac Sampling and Pressure, Left Heart, Percutaneous Approach (ICD-10-PCS; 2017-04-16)
PROC: B2111ZZ Fluoroscopy of Multiple Coronary Arteries using Low Osmolar Contrast (ICD-10-PCS; 2017-04-16)
DX: I21.4 Non-ST elevation (NSTEMI) myocardial infarction (principal); I24.9 Acute ischemic heart disease, unspecified; I25.84 Coronary atherosclerosis due to calcified coronary lesion; I25.10 Atherosclerotic heart disease of native coronary artery without angina pectoris; R94.39 Abnormal result of other cardiovascular function study; Z87.891 Personal history of nicotine dependence; I10 Essential (primary) hypertension; E78.5 Hyperlipidemia, unspecified; E66.01 Morbid (severe) obesity due to excess calories; Z68.36 Body mass index [BMI] 36.0-36.9, adult; R73.03 Prediabetes; G47.33 Obstructive sleep apnea (adult) (pediatric)

== ENCOUNTER 2017-05-02 10:45 | Inpatient (IN) | payer MEDICARE ==
[2017-05-02] VITALS (8 sets, daily range): BP systolic 112–149; BP diastolic 51–97; PULSE 25–115; RESP 16–25; O2SAT 94–100
[~2017-05-02] VITALS: Ht 180.3 cm; Wt 120.2 kg
[~2017-05-02 10:45] MED LIST changes: +ALBU8.5H2 INHALATION; +BECL8.7A6 INHALATION; +METO25TA99 PO; +NITR0.4T6 SL; +TIOT18CA3 IH
--- NOTE | 2017-05-02 10:55 | ED.REPORT ---
HPI-General Illness Date of Service May 02, 2017 ED Provider: Harry Ulloa MD A 76 year old male with a history of COPD, CAD, hypertension, hyperlipidemia and recent triple bypass surgery is brought to the ED via EMS due to shortness of breath. The pt began feeling short of breath last night and it gradually worsened through this morning. Now described as severe, with no notable alleviating or exacerbating factors. He denies chest pain, fever, chills, weakness, or other complaints. He was put on BiPAP by medics, and reports that his symptoms are not worsened by inspiration. The pt has never experienced similar symptoms before. He underwent a triple bypass surgery last week. No other acute complaints at this time. Nursing Notes Stated Complaint: RESPIRATORY DISTRESS Chief Complaint: Respiratory Complaints Nursing Notes Reviewed: Yes Allergies: Coded Allergies: No Known Allergies (Verified Allergy, Unknown, 05/02/17) Scheduled Aspirin (Aspirin) 81 Mg Tablet 81 MG PO DAILY Beclomethasone Dipropionate (Qvar) 8.7 Gm Aer.w.adap 1 PUFF INHALATION BID Lisinopril (Lisinopril) 20 Mg Tablet 40 MG PO QPM Lovastatin (Lovastatin) 20 Mg Tablet 20 MG PO HS Metoprolol Succinate ER (Metoprolol Succinate ER) 25 Mg Tab.er.24h 12.5 MG PO DAILY Tiotropium [place] (Spiriva) 18 Mcg Cap.w.dev 18 MCG IH DAILY Scheduled PRN Albuterol HFA (Proair HFA) 8.5 Gm Hfa.aer.ad 2 PUFFS INHALATION Q4H PRN PRN For Shortness of Breath Nitroglycerin SL (Nitroglycerin SL) 0.4 Mg Tab.subl 0.4 MG SL Q5MIN PRN PRN For Chest Pain General Time Seen by : 10:52 Chief Complaint Other (Shortness of breath) Hx Obtained From: Patient, EMS Arrived By: Ambulance Sudden in Onset?: No Onset Occurred: 1 day ago Symptom Duration: Since onset Recent Healthcare: Recent doctor visit, Recent hospitalization Similar Sx Previous: No Past Medical History Past Medical History Notes: Had stress test (04/16/17): Stress test impression below: Abnormal study. Moderate to large reversible perfusion defect involving the mid to distal anteroseptal myocardium as well as the apex, in keeping with ischemia. Associated decreased wall thickening and segmental hypokinesis. Decreased exercise capacity. Normal left ventricle stress ejection fraction. Past Medical History Hypertension Hyperlipidemia COPD Unstable angina NSTEMI Reports: Coronary artery disease Past Surgical History triple bypass Family History Noncontributory Smoking History Former Smoker Social History Alcohol Use: "Social" Drug Use: Denies drug use Ambulatory Status Independent Review of Systems Full Review of Systems Constitutional: Denies: Chills, Fever, Weakness - generalized Respiratory: Reports: Shortness of breath, Denies: Non-productive cough Cardiovascular: Denies: Chest pain GI: Denies: Abdominal pain, Vomiting Musculoskeletal: Denies: Back pain, Neck pain Skin: Denies Rash Complete sys rev & neg: except as marked. Physical Exam Constitutional: Obese, elderly male sitting up in bed, appears uncomfortable.. Head: Normocephalic and atraumatic. Mouth/Throat: Oropharynx is clear and moist. No oropharyngeal exudate. Eyes: EOM are normal. Pupils are equal, round, and reactive to light. Neck: Supple, no tracheal deviation. Cardiovascular: Tachycardic, regular rhythm. Equal and intact distal pulses throughout. 1+ edema to bilateral lower extremities. Pulmonary/Chest: Coarse breath sounds at bilateral bases. Increased respiratory effort. Well-healing midline surgical scar. Abdominal: Soft. No distension. There is no tenderness, rebound, or guarding. Bowel sounds present. Musculoskeletal: Range of motion grossly intact, moving all extremities. 1+ edema of bilateral lower extremities. Venous stasis changes of bilateral lower extremities. Neurological: AOx3. Grossly nonfocal exam. Strength and sensation intact and equal to bilateral upper and lower extremities. Skin: Warm and dry, no rashes or pallor appreciated. Psychiatric: Appropriate mood and affect. Behavior appears normal. Vital Signs Vital Signs Date Time Temp Pulse Resp B/P Pulse Ox O2 Delivery O2 Flow Rate FiO2 05/02/17 14:09 100 22 133/78 100 BiPAP 05/02/17 12:06 16 99 05/02/17 12:02 105 25 123/67 99 BiPAP 05/02/17 11:11 105 22 112/51 99 BiPAP 05/02/17 10:51 36.2 115 24 146/97 98 BiPAP Initial VS: Reviewed, Vital signs abnormal Interpretation & Diagnostics Lab Results Interpretation Result Diagram: 05/02/17 1143 05/02/17 1143 Test 05/02/17 11:43 05/02/17 14:13 White Blood Count 12.6th/mm3 (3.8-10.1) Red Blood Count 3.38mil/mm3 (4.40-5.80) Hemoglobin 11.1g/dL (13.8-17.2) Hematocrit 33.9% (41.0-50.0) Mean Corpuscular Volume 100.3fL (81-100) Mean Corpuscular Hemoglobin 32.8pg (27.0-35.0) Mean Corpuscular Hemoglobin Concent 32.7% (32.0-37.0) Red Cell Distribution Width 15.4% (12.3-15.4) Platelet Count 439bil/L (150-400) Neutrophils (%) (Auto) 84.3% (40-74) Lymphocytes (%) (Auto) 6.7% (14-46) Monocytes (%) (Auto) 6.8% (4-12) Eosinophils (%) (Auto) 1.6% (0-5) Basophils (%) (Auto) 0.2% (0-3) Prothrombin Time 11.1sec (8.1-12.5) Prothromb Time International Ratio 1.04ratio Sodium Level 131mEq/L (134-144) Potassium Level 4.0mEq/L (3.5-5.2) Chloride Level 91mEq/L (97-108) Carbon Dioxide Level 25mmol/L (18-29) Blood Urea Nitrogen 21mg/dL (8-27) Creatinine 0.64mg/dL (0.76-1.27) Estimat Glomerular Filtration Rate 129mL/min (>59) Glucose Level 119mg/dL (60-99) Calcium Level 8.6mg/dL (8.5-10.1) Magnesium Level 2.1mg/dL (1.6-2.6) Total Bilirubin 0.6mg/dL (0.0-1.2) Aspartate Amino Transf (AST/SGOT) 48U/L (0-50) Alanine Aminotransferase (ALT/SGPT) 45U/L (0-44) Alkaline Phosphatase 67U/L (25-160) Troponin T 0.047ug/L (0.0-0.011) Pro-B-Type Natriuretic Peptide 918.8pg/mL (0-486) Total Protein 5.6g/dL (6.4-8.4) Albumin 3.1g/dL (3.4-5.0) Procalcitonin 0.13ng/mL (0.00-0.08) Lactic Acid Level 1.3mmol/L (0.4-2.0) ECG Interpretation ECG Interpretation: sinus tachycardia with a rate of 115 paired ventricular premature complexes prolonged QT interval Time: 10:58 Interpreted by: ED physician X-Ray Chest Interpretation Chest Xray Interpretation: IMPRESSION: 1. Bilateral pleural effusions, left greater than right, with bibasilar compressive atelectasis or consolidation. Dictated by: Wilfredo Espinoza M.D. on 05/02/2017 at 12:13 Approved by: Wilfredo Espinoza M.D. on 05/02/2017 at 12:15 Interpretation / Wet Read by: Interpret - Radiologist Re-Eval/Medical Decision Med Decision/Clinical Course 76-year-old male presenting to the ED for evaluation of progressively worsening , now severe dyspnea since last night in the setting of CABG approximately one week ago. Not having any chest pain at this time. Differential is broad and includes ACS, CHF exacerbation, COPD exacerbation, cardiac tamponade, pneumonia , etc. Not having any chest pain at this time, nor anginal equivalent. Not hypotensive, no muffled heart sounds, cannot appreciate any significant JVD. EKG demonstrates sinus tachycardia, a prolonged QT interval, with multiple PVCs. Troponin of 0.047, BNP of 918. VBG demonstrates pH of 7.45, bicarbonate of 29, PCO2 43. Patient placed on BiPAP here in the ED; was on CPAP prior to arrival. Upon reassessment, patient notes a marked improvement in his respiratory distress and respiratory effort, however we were unable to wean him off of the BiPAP without significant hypoxia. Given the above, plan admission for further management and evaluation. Patient agreeable to the plan as stated , no further questions. Discussed case with the admitting hospitalist, who recommended obtaining a pro calcitonin, lactic acid, viral PCR; these are pending at time of admission. Source of Hx: Old records Time of Eval: 10:55 Patient Status: Condition improved Re-Evaluation/Progress Note: Pt informed of the diagnosis and plan for admission during the initial interview. The pt understands and agrees with the plan. All questions are addressed at this time. Consultation : Referral / Consult Name: Denita Li DO Consulted With: Hospitalist Call Returned at: 13:56 Quarter Section Ironer: Agrees with eval, Agrees with plan, Accepts admit Note: Spoke with Dr. Li, hospitalist, regarding pt's case. Dr. Li agrees with the evaluation and agrees to admit the pt. Counseled Regarding: Diagnosis, Lab results, Need for admission Discharge & Departure Primary Impression: Acute respiratory failure with hypoxia Additional Impression: NSTEMI (non-ST elevated myocardial infarction) Disposition: ADMITTED TO HOSPITAL Discharge Condition All VS Reviewed: Yes Condition: Critical Referrals: Tracie Velazquez (PCP) Crit Care Except Billable Proc Time Spent: 75-104 minutes Services Performed: Patient management by me, Time spent at bedside, Reviewing test results, Reviewing imaging, Discussing patient care, Documentation in record Critical Care Notes: Please see MDM. Scribe Attestation Portions of this note were transcribed by Rosibel Arboleda and Srikanth May. I, Dr. Ulloa personally performed the history, physical exam and medical decision-making; I reviewed and confirmed the accuracy of the information in the transcribed note. copies to: Tracie Velazquez William B MD May 02, 2017 10:55 ROSIBEL ARBOLEDA May 02, 2017 11:08 SRIKANTH MAY May 02, 2017 15:56
--- NOTE | 2017-05-02 11:58 | ABG ---
DateTimeAnalyzed 11:44:00 -_ pH ____7.454 - pCO2 ___43.0__ -mmHg pO2 186 -mmHg HCO3- ___29.7__ -mmol/L ABE ____5.6__ -mmol/L tHb ___11.2__ -g/dL O2Hb ___96.1__ -% COHb ____2.6__ -% MetHb ____0.9__ -% sO2 ___99.6__ -% FIO2 ___50.0__ -% Drawn By LW - B 759 -mmHg tO2 ___15.5__ -Vol%
--- NOTE | 2017-05-02 12:16 | DRSVH ---
PROCEDURE: X-RAY CHEST ONE VIEW, PORTABLE ([id number]) INDICATIONS: dyspnea TECHNIQUE: One view of the chest was acquired. COMPARISON: [facility], CT, CT ANGIO CHEST PE, 05/01/2017, 13:50. [facility] , CR, XR CHEST 1VW (PORTABLE), 04/16/2017, 16:39. FINDINGS: Surgical changes and devices: There are postsurgical changes in the mediastinum including median ster notomy wires which are new compared to the prior study. Lungs and pleura: There are bilateral pleural effusions, moderate on the left and small the right, w ith associated bibasilar compressive atelectasis or consolidation. Mediastinum: Mediastinal contours appear mildly prominent which may be due to technique. Heart size is enlarged. Bones and chest wall: No suspicious bony lesions. Overlying soft tissues appear unremarkable. IMPRESSION: 1. Bilateral pleural effusions, left greater than right, with bibasilar compressive atelectasis or c onsolidation. Dictated by: Wilfredo Espinoza M.D. on 05/02/2017 at 12:13 Approved by: Wilfredo Espinoza M.D. on 05/02/2017 at 12:15
[2017-05-02 12:23] LABS: Mean Corpuscular Volume 100.3 fL (81-100)
[2017-05-02 12:24] LABS: BASOPHILS % (AUTO) 0.2 % (0-3); EOSINOPHILS % (AUTO) 1.6 % (0-5); MONOCYTES % (AUTO) 6.8 % (4-12); Mean Corpuscular Hemoglobin 32.8 pg (27.0-35.0); NEUTROPHILS % (AUTO) 84.3 % (40-74); Platelet Count 439 bil/L (150-400)
[2017-05-02 12:32] LABS: INR 1.04 ratio
[2017-05-02 13:05] LABS: Magnesium 2.1 mg/dL (1.6-2.6)
[2017-05-02 13:12] LABS: TROPONIN T 0.047 ug/L (0.0-0.011)
[2017-05-02] MEDS ORDERED: Senna-Docusate 8.6-50 mg Tablet PO PRN (15:25)
[2017-05-02] MEDS ORDERED: Ondansetron 2 mg/mL 2 mL Inj IVPUSH PRN (15:25)
[2017-05-02] MEDS ORDERED: Alum-Mag Hydrox-Simeth 30 mL Suspension PO PRN (15:25)
[2017-05-02] MEDS ORDERED: Polyethylene Glycol (PEG) 17 Gm Powder PO PRN (15:25)
--- NOTE | 2017-05-02 15:39 | PCM.HPMED ---
Subjective Date of Service May 02, 2017 Primary Provider: Admitting Physician: Primary Care Physician: Tracie Velazquez Attending Physician: Chief Complaint: Shortness of breath History of Present Illness: Maverick Yusuf is a 76 year old man with a PMH of HTN, COPD, and CAD s/p 3 vessel CABG 2 weeks ago having just discharged from [facility] in [place] on ; he presents with a 1 day history of increasing SOB. He states that upon DC from his previous hospitalization the patient was feeling reasonably well, he denies chest pain, palpitations, abdominal pain, incisional pain, fevers, chills, nausea, vomiting or diarrhea; he states that this weekend he began to feel increasingly SOB such that he went to the ED over the weekend and was reassured that he was not experiencing any acute process. His breathing continued to gradually worsen over the next few days such that he was unable sleep the evening prior to presentation due to SOB. In the ED the patient underwent CXR which demonstrated L>R pleural effusion, and positive for SIRS criteria with a mildly elevated WBC, tachycardia, and a low temperature of 36.2. Review of Systems: Comprehensive ROS negative except as outlined above in the HPI Allergies Coded Allergies: No Known Allergies (Verified Allergy, Unknown, 05/02/17) Home Medications Aspirin (Aspirin) 81 Mg Tablet 81 MG PO DAILY Beclomethasone Dipropionate (Qvar) 8.7 Gm Aer.w.adap 1 PUFF INHALATION BID Lisinopril (Lisinopril) 20 Mg Tablet 40 MG PO QPM Lovastatin (Lovastatin) 20 Mg Tablet 20 MG PO HS Metoprolol Succinate ER (Metoprolol Succinate ER) 25 Mg Tab.er.24h 12.5 MG PO DAILY Tiotropium [place] (Spiriva) 18 Mcg Cap.w.dev 18 MCG IH DAILY Scheduled PRN Albuterol HFA (Proair HFA) 8.5 Gm Hfa.aer.ad 2 PUFFS INHALATION Q4H PRN PRN For Shortness of Breath Nitroglycerin SL (Nitroglycerin SL) 0.4 Mg Tab.subl 0.4 MG SL Q5MIN PRN PRN For Chest Pain PMH Hypertension Hyperlipidemia COPD Reports: Coronary artery disease Surgical History Triple Bypass CABG early this month Family History HTN and obesity in multiple family members Social History Hx Alcohol Use: No Hx Substance Use: No Hx Tobacco Use: Yes Smoking Status: Former Smoker Exam Vital Signs Vital Sign - Last Date Time Temp Pulse Resp B/P Pulse Ox O2 Delivery O2 Flow Rate FiO2 05/02/17 14:09 100 22 133/78 100 BiPAP 05/02/17 10:51 36.2 Exam Gen: A/O x3 pleasant cooperative obese age appropriate man on NPPV, NAD Neck: Supple, non tender, Full ROM, no adenopathy HEENT: PERRL, EOMI, no discernible JVD, no scleral icterus, no conjunctival pallor CV: RRR, soft systolic murmur difficult to appreciate over underlying NPPV sounds, no rubs or gallops Resp: Coarse breath sounds in right base, distant breath sounds in left base with muffled coarse breath sounds Abd: Slightly firm, obese, slightly distended, no discernible organomegaly though difficult to determine given distension Extr: BL +3 pitting LE edema with associated BL chronic venous stasis changes Neuro: CN 2-12 grossly intact, no focal neurologic deficit Psych: Pleasant and appropriate mood and affect. Lab and Diagnostics Labs Item Value Date Time Red Blood Count 3.38 mil/mm3 L 05/02/17 1143 Mean Corpuscular Volume 100.3 fL H 05/02/17 1143 Mean Corpuscular Hemoglobin 32.8 pg 05/02/17 1143 Mean Corpuscular Hemoglobin Concent 32.7 % 05/02/17 1143 Red Cell Distribution Width 15.4 % 05/02/17 1143 Neutrophils (%) (Auto) 84.3 % H 05/02/17 1143 Lymphocytes (%) (Auto) 6.7 % L 05/02/17 1143 Monocytes (%) (Auto) 6.8 % 05/02/17 1143 Eosinophils (%) (Auto) 1.6 % 05/02/17 1143 Basophils (%) (Auto) 0.2 % 05/02/17 1143 Estimat Glomerular Filtration Rate 129 mL/min 05/02/17 1143 Lactic Acid Level 1.3 mmol/L 05/02/17 1413 Calcium Level 8.6 mg/dL 05/02/17 1143 Magnesium Level 2.1 mg/dL 05/02/17 1143 Total Bilirubin 0.6 mg/dL 05/02/17 1143 Aspartate Amino Transf (AST/SGOT) 48 U/L 05/02/17 1143 Alanine Aminotransferase (ALT/SGPT) 45 U/L H 05/02/17 1143 Alkaline Phosphatase 67 U/L 05/02/17 1143 Troponin T 0.047 ug/L *H 05/02/17 1143 Pro-B-Type Natriuretic Peptide 918.8 pg/mL H 05/02/17 1143 Total Protein 5.6 g/dL L 05/02/17 1143 Albumin 3.1 g/dL L 05/02/17 1143 Procalcitonin 0.13 ng/mL H 05/02/17 1143 Prothrombin Time 11.1 sec 05/02/17 1143 Prothromb Time International Ratio 1.04 ratio 05/02/17 1143 Result Diagram: 05/02/17 1143 05/02/17 1143 X-Rays, CTs and MRIs X-RAY CHEST ONE VIEW, PORTABLE IMPRESSION: 1. Bilateral pleural effusions, left greater than right, with bibasilar compressive atelectasis or consolidation. Dictated by: Wilfredo Espinoza M.D. on 05/02/2017 at 12:13 Approved by: Wilfredo Espinoza M.D. on 05/02/2017 at 12:15 . Assessment & Plan Maverick Yusuf is a 76 year old man with a PMH of COPD, HTN, and CAD s/p 3 vessel CABG earlier this month who presents with a 1 week history of increasing SOB having only been discharged following his CABG on 04/27/17. In the ED the patient was found to have a pleural effusion L>R and was placed on NPPV which he responded well to. The patient will be admitted for non invasive ventilation until such time as his pleural effusion can be addressed either through thoracentesis or diuresis depending upon whether the volume of fluid is sufficient for safe extraction. Acute respiratory failure with hypoxia secondary to bilateral pleural effusion L >R, POA, chronicity uncertain. Active -CXR demonstrative of BL pleural effusion as above L>R -Patient recently underwent 3 vessel CABG -US to establish whether there is sufficient fluid to tap -Cell count, cultures, LDH, protein, cholesterol, and culture of pleural fluid should there be enough to tap -Lasix 40 mg IV BID in the interim -will repeat imaging after procedure HTN, POA, chronic. Active -Continue home Lisinopril -Continue home Metoprolol COPD, POA, Chronic. Active -Duoneb q4 PRN -Continue home Spiriva -NPPV with plan to wean off following potential thoracentesis CAD, present on admission Chronic - Continue lisinopril and metoprolol -Continue to monitor HLD present on admission, chronic - Continue Atorvastatin 5mg Qhs Disposition: Due to the complexity of the patient's current disease process will likely stay greater than to midnight Pain Evaluation: Adequate Pain Control GI Prophylaxis: H2 scar VTE Prophylaxis: Sub-Q Heparin (Unfractionated) VTE Mechanical Devices: Intermittant Pneumatic CD Resuscitation Status: CPR: Attempt Resuscitation Attending Statement The patient was seen and examined together with Dr. Blackwell on 05/02/17 and I have added additional information to the note above. Miguel Blackwell DO May 02, 2017 15:39 Denita Li DO May 04, 2017 17:19
--- NOTE | 2017-05-02 17:34 | DRSVH ---
PROCEDURE: X-RAY CHEST ONE VIEW, PORTABLE ([id number]) INDICATIONS: post thorecentesis TECHNIQUE: One view of the chest was acquired. COMPARISON: [facility], CR, XR CHEST 1VW (PORTABLE), 05/02/2017, 11:06. FINDINGS: Surgical changes and devices: Sternotomy wires Lungs and pleura: Slight decrease in small to moderate left pleural effusion with adjacent atelectasi s. No pneumothorax. Mediastinum: Mediastinal contours appear normal. Heart size is normal. Bones and chest wall: No suspicious bony lesions. Overlying soft tissues appear unremarkable. IMPRESSION: No pneumothorax, status post left thoracentesis. Decrease in small to moderate left pleural effusion with adjacent atelectasis. Dictated by: Rahul Noel M.D. on 05/02/2017 at 17:30 Approved by: Rahul Noel M.D. on 05/02/2017 at 17:31
[2017-05-02] MEDS: Sodium Chloride LOK Flush 10 mL Syringe IVFLUSH SCH (18:30)
[2017-05-02] MEDS: Heparin 5,000 Unit/mL Inj SUBQ SCH (18:30)
--- NOTE | 2017-05-02 19:07 | NUR ---
Admit/Chest incision Pt admitted to CCU at 18:00. Thoracentesis performed in ED, pt arrived on 2L NC with no resp. distress. Pt sitting in chair eating dinner. Chest incision weeping sero sanguinous fluids. pt reports this has been happening on and off since his CABG one week ago and his ecmo specialist is aware. Dressing changed.
[2017-05-02] MEDS: Fluticasone 100 mCg Inhaler INHALATION SCH (19:36)
[2017-05-02 19:39] LABS: BFWBC 113 /mm3
[2017-05-02 19:40] LABS: MONOCYTES,BODY FLUID 17 %; OTHER CELLS,BODY FLUID 10
[2017-05-02] MEDS: MeTOProlol XL 25 mg ER24 Tablet PO SCH (19:58)
[2017-05-02 22:44] LABS: APPEARANCE,URINE CLEAR (CLEAR,HAZY); COLOR,URINE YELLOW (YELLOW); OCCULT BLOOD,URINE NEGATIVE (NEGATIVE)
[2017-05-03] VITALS (12 sets, daily range): BP systolic 110–161; BP diastolic 47–89; PULSE 62–102; RESP 16–21; O2SAT 92–98
[2017-05-03] MEDS: Sodium Chloride LOK Flush 10 mL Syringe IVFLUSH SCH ×3 (00:37→16:39)
[2017-05-03] MEDS: Heparin 5,000 Unit/mL Inj SUBQ SCH ×3 (00:38→16:39)
--- NOTE | 2017-05-03 06:05 | NUR ---
Assumed Care/PCC/BiPAP Assumed care when patient changed to PCC status at 2129. Patient requesting use of BiPAP when he goes to bed. Assisted patient to bed at 2200 and set up BiPAP. Patient asleep until 0500; reports "the best sleep" and states that he feels much better.
[2017-05-03 07:38] LABS: BASOPHILS % (AUTO) 0.2 % (0-3); EOSINOPHILS % (AUTO) 4.8 % (0-5); MONOCYTES % (AUTO) 8.1 % (4-12); Mean Corpuscular Hemoglobin 32.1 pg (27.0-35.0); Mean Corpuscular Volume 100.9 fL (81-100); NEUTROPHILS % (AUTO) 75.3 % (40-74); Platelet Count 427 bil/L (150-400)
--- NOTE | 2017-05-03 08:25 | DRSVH ---
PROCEDURE: US GUIDED THORACENTESIS BY REFERRING PHYSICIAN ([id number]) INDICATIONS: Pleural effusion TECHNIQUE: The indications, alternatives, benefits, risks, and complications of the procedure were explained to the patient. Written informed consent was obtained and placed in the chart. The chest was examined sonographically, and an appropriate site was chosen for thoracentesis. The skin was prepared and corine ped in the usual sterile fashion, and 1% lidocaine was infiltrated from the skin down through the ple ural surface. A 19-gauge catheter-covered needle was then introduced into the pleural space, the cat heter was advanced and the needle was withdrawn, and thereafter pleural fluid was aspirated. The cat heter was then removed and a dressing was applied. COMPARISON: None. FINDINGS: Access site: Left hemithorax, by Dr. Arnett. Needle: One-Step centesis catheter with introducer needle. Fluid volume and description: 1020 cc hemorrhagic pleural effusion aspirated. Fluid sent for diagnostic testing: At the direction of the ordering health care provider. Medications: 1% lidocaine for local anaesthesia. Complications: None; post-procedural chest radiograph is pending to assess for pneumothorax. IMPRESSION: Successful ultrasound-guided thoracentesis. Dictated by: Iraj Cardona M.D. on 05/03/2017 at 8:22 Approved by: Iraj Cardona M.D. on 05/03/2017 at 8:23
[2017-05-03] MEDS: Tiotropium 18mcg/Cap 5 Capsule Inhaler Kit INHALATION SCH (09:55)
[2017-05-03] MEDS: Fluticasone 100 mCg Inhaler INHALATION SCH ×2 (09:55→21:22)
[2017-05-03] MEDS ORDERED: Furosemide 10 mg/mL 2 mL Inj IVPUSH ONE (11:20)
[2017-05-03] MEDS: Albuterol-Ipratropium 3 mL Inhalation Solution NEB PRN (13:30)
--- NOTE | 2017-05-03 14:16 | NUR ---
Social Work: Initial Assessment/Multidisciplinary Rounds D: Per EMR review, pt is a 76 year old male admitted mofr acute hypoxic respiratory failure. Pt is [place] iwth Medicare. pt has no LTC or VA benefits. PCP is SAGE Scherer. NOK is Frannie Anaya, , . Advanced directives completed- requested copy for chart. Readmit score is low 2/8. Pt discussed in am rounds. Pt lives a home iwth his . Pt recently discharged from [facility] on 04/27/17. Capacity for self care discussed; no concerns or discharge needs noted at this time. MARITIME PILOT met with the patient and at bedside. Sw role explained, contact info and dcp checklist provided. See initial assessment. Pt lives iwht his at home in [facility]. Pt uses no DME but owns a walker. Pt states that he would like to have some home health and was not setup with this at his time of discharge from [facility]. MARITIME PILOT will discuss pt's request for HH with MD at am rounds. Pt states that he has not been able to drive since his hospitalization at [facility] and that his does not drive. Transportation from the hospital is a barrier. Pt states that he can pay for a [place] taxi however would like some info about retirement solutions. MARITIME PILOT will provide the patient with information about [employer] prior to d/c along with the Senior Resource Guide. A: Pt who is I at baseline and lives with his . P: Evolving; Anticipate pt to likely discharge home with his via [employer]; [employer]IT[employer] PILOT to continue to follow to assess for d/c need and r/o home health. ZAK Tejeda Addendum: 05/03/17 at 1425 by CARLEE FAYE Amended: Links added.
--- NOTE | 2017-05-03 15:13 | PCM.PNMED ---
Subjective Date of Service May 03, 2017 Subjective Nursing reports patient slept well on BiPap, and that chest incision weeping sero sanguinous fluids. No acute events otherwise. Patient is sitting up in bed watching television. States that he does not have any CP, SOB, ABD pain, N/V/D. States that he feels much better after the thoracentesis. ROS negative unless otherwise noted. Exam Vital Signs Vital Sign - Last Date Time Temp Pulse Resp B/P Pulse Ox O2 Delivery O2 Flow Rate FiO2 05/03/17 14:40 Supplement Oxygen CPAP/BIPAP 05/03/17 13:29 88 96 05/03/17 12:29 161/60 05/03/17 12:24 36.8 18 2.00 05/03/17 03:46 92 Intake and Output 05/02/17 05/02/17 05/03/17 Cumulative From/Thru 15:00 23:00 07:00 05/02/17 10:51 - 05/03/17 05:14 Intake Total 300 ml 300 ml Output Total 1225 ml 1225 ml Balance -925 ml -925 ml Intake Oral 300 ml 300 ml Output Urine Total 1225 ml 1225 ml # Voids 1 1 # Bowel Movements 0 0 Exam Constitutional: Alert and Awake. No acute Distress Head: normocephalic and atraumatic Eyes: EOMI. No scleral icterus Heart: Regular Rate and rhythm. +2 pitting edema on bilaterally on lower extremities Lungs: Bibasilar rales that are worse on the Left side as compared to the right. Mild wheeze throughout. ABD: protuberant, soft, nontender, bowel sounds present throughout. Skin: Chronic venous skin changes on bilateral lower extremities. Healing midsternal scar from recent CABG that is draining serosanguinous fluid, with no signs of infection. Recent incision site on Left anterior forearm that runs the length of his forearm that is mildly erythematous, but otherwise has no signs of infection. Otherwise no rash. Neuro: CN II-XII intact. No focal deficits. Psych: appropriate mood and affect. IVs and Medications Medications Reviewed: Medications were reviewed in detail Lab and Diagnostics Item Value Date Time Red Blood Count 3.30 mil/mm3 L 05/03/17 0725 Mean Corpuscular Volume 100.9 fL H 05/03/17 07 Mean Corpuscular Hemoglobin 32.1 pg 05/03/17 0725 Mean Corpuscular Hemoglobin Concent 31.8 % L 05/03/17 0725 Red Cell Distribution Width 15.7 % H 05/03/17 0725 Platelet Count 427 sherice/L H 05/03/17 0725 Neutrophils (%) (Auto) 75.3 % H 05/03/17 0725 Lymphocytes (%) (Auto) 11.1 % L 05/03/17 0725 Monocytes (%) (Auto) 8.1 % 05/03/17 0725 Eosinophils (%) (Auto) 4.8 % 05/03/17 0725 Basophils (%) (Auto) 0.2 % 05/03/17 0725 Potassium Level 4.0 mEq/L 05/03/17 0725 Estimat Glomerular Filtration Rate 122 mL/min 05/03/17 0725 Lactic Acid Level 1.3 mmol/L 05/02/17 1413 Calcium Level 8.4 mg/dL L 05/03/17 0725 Total Bilirubin 0.7 mg/dL 05/03/17 0725 Aspartate Amino Transf (AST/SGOT) 40 U/L 05/03/17 0725 Alanine Aminotransferase (ALT/SGPT) 47 U/L H 05/03/17 0725 Alkaline Phosphatase 65 U/L 05/03/17 0725 Total Protein 5.3 g/dL L 05/03/17 0725 Albumin 2.8 g/dL L 05/03/17 0725 Troponin T 0.053 ug/L *H 05/03/17 0052 Troponin T 0.051 ug/L *H 05/03/17 0725 Prothrombin Time 11.1 sec 05/02/17 1143 Prothromb Time International Ratio 1.04 ratio 05/02/17 1143 Body Fluid Color Red 05/02/17 1753 Body Fluid Source Pleural fluid 05/02/17 1753 Body Fluid Appearance Cloudy 05/02/17 1753 Body Fluid WBC 113 /mm3 05/02/17 1753 Body Fluid RBC 14261 /mm3 05/02/17 1753 Body Fluid Polynuclear WBCs 21 % 05/02/17 1753 Body Fluid Lymphocytes 57 % 05/02/17 1753 Body Fluid Eosinophils 5 % 05/02/17 1753 Body Fluid Monocytes 17 % 05/02/17 1753 Body Fluid Basophils 0 % 05/02/17 1753 Body Fluid Lactate Dehydrogenase 340 U/L 05/02/17 175 Pleural Fluid Total Protein 3.3 g/dL 05/02/171752 Result Diagram: 05/03/1772405/03/17724 Microbiology Nasopharyngeal PCR - negative Blood Cultures Pending X-Rays, CTs and MRIs X-RAY CHEST ONE VIEW, PORTABLE IMPRESSION: 1. Bilateral pleural effusions, left greater than right, with bibasilar compressive atelectasis or consolidation. Dictated by: Wilfredo Espinoza M.D. on 05/02/2017 at 12:13 Approved by: Wilfredo Espinoza M.D. on 05/02/2017 at 12:15 . 12-lead ECG Sinus tachycardia; prolonged QT - w/ QTc 531; Premature ventricular complexes. Assessment & Plan Maverick Yusuf is a 76 year old man with a PMH of COPD, HTN, and CAD s/p 3 vessel CABG earlier this month who presents with a 1 week history of increasing SOB having only been discharged following his CABG on 04/27/17. In the ED the patient was found to have a pleural effusion L>R and was placed on NPPV which he responded well to. Patient underwent thoracentesis 05/02 with 1000cc drained. Early laboratory evaluation indicative of transudative fluid. Pleural effusion BL L>R, POA, chronicity uncertain. Active -Thoracentesis of L lung effusion performed 05/02 in the ED draining 1000cc of pleural fluid. -Patient recently underwent 3 vessel CABG 04/27/17. -Lasix 40 mg IV BID - Pleural fluid transudative in nature. Likely from Fluid overload. Will continue to diurese with Lasix. -Repeat CXR showed decrease in small to moderate effusion on the left side following thoracentesis. No pneumothorax. Macrocytic Anemia, chronic, present on admission. Active. - Hgb10.9 with MCV 100.9 today. This has been present on multiple visits dating back to 09/25/16. Will evaluate for folate/B12 def. - Obtain folate, B12 labs. HTN, POA, chronic. Active -Continue home Lisinopril -Continue home Metoprolol COPD, POA, Chronic. Active -Duoneb q4 PRN -Continue home Spiriva - Continue using Incentive Spirometer Q1H. CAD, present on admission Chronic - Continue lisinopril and metoprolol -Continue to monitor HLD present on admission, chronic - Continue Atorvastatin 5mg Qhs Maintenance - Zofran 4mg IV PRN nausea - Melatonin 5mg PO PRN Insomnia Disposition: Patient underwent thoracentesis on 05/02 and will have a stay greater than two midnights while being evaluated for resolution of dyspnea, diuresis of fluids, and evaluation of pleural fluids. GI Prophylaxis: H2 scar VTE Prophylaxis: Sub-Q Heparin (Unfractionated) VTE Mechanical Devices: Intermittant Pneumatic CD Resuscitation Status: CPR: Attempt Resuscitation Attending Statement The patient was seen and examined together with Dr. Gerardo on 05/03/2017 and I have added additional information to the note above. Jem Gerardo DO May 03, 2017 15:13 Denita Li DO May 04, 2017 17:33
--- NOTE | 2017-05-03 16:49 | NUR ---
Respiration/Bipap Cardiac: Denies CP. Tele SR 90s with PVCs. Resp: Pt taken off bipap when awake this AM, put back on for naps. Pt reports he still feels a little short of breath in the AM, improved in the afternoon with lasix, SPO2 97%-99% on 2L NC. Pt reported he slept much better than he has in a long time with the BiPAP. Discussed REGINO and encouraged home CPAP use with pt, he reports that he has started using his CPAP more regularly and has been fitted with a new mask. Pt given incentive spirometer to use and he reports using it every hour. GI/: pt denies n/v/d. Pt requested something to soften stool, mirilax given. Neuro: A&Ox3, NELY
[2017-05-03] MEDS: MeTOProlol XL 25 mg ER24 Tablet PO SCH (21:20)
[2017-05-04] VITALS (7 sets, daily range): BP systolic 99–137; BP diastolic 53–71; PULSE 63–98; RESP 19–24; O2SAT 90–96
[2017-05-04] MEDS: Heparin 5,000 Unit/mL Inj SUBQ SCH ×2 (00:32→09:06)
[2017-05-04] MEDS: Sodium Chloride LOK Flush 10 mL Syringe IVFLUSH SCH ×2 (00:32→09:07)
[2017-05-04 04:19] LABS: Mean Corpuscular Hemoglobin 32.2 pg (27.0-35.0)
[2017-05-04] MEDS: Albuterol-Ipratropium 3 mL Inhalation Solution NEB PRN (05:51)
--- NOTE | 2017-05-04 06:41 | NUR ---
Respiratory 02sat in mid 90s on 2L NC. Tolerated BIPAP tonight without any issues. Pt refused dose of Po Lasix last night. " I want to sleep tonight". Mild dypsnea with exertion. Telemetry SR in 80s with frequent pacs.
[2017-05-04] MEDS: Fluticasone 100 mCg Inhaler INHALATION SCH (09:06)
[2017-05-04] MEDS: Tiotropium 18mcg/Cap 5 Capsule Inhaler Kit INHALATION SCH (09:07)
--- NOTE | 2017-05-04 09:59 | NUR ---
advised OK for pt to be off tele for a shower.
--- NOTE | 2017-05-04 11:49 | PCM.DIMED ---
Jem Gerardo DO 05/04/17 1149: Discharge Instructions Date of Service May 04, 2017 Dates of Hospitalization May 02, 2017 at 16:04 Discharge Diagnosis Discharge Diagnosis Bilateral Pleural effusion Macrocytic Anemia HTN COPD Diet Discharge Diet: Low fat, Low Sodium Activity Discharge Activity: Limited until seen by PCP Call your provider Call your provider for: Fever or Chills, Shortness of breath, Bleeding, Chest pain, Vomitting, Excessive diarrhea, Weakness (unilateral) Patient Instructions Patient Instructions Please limit your salt intake. This will cause you to hold onto fluid in your body and lungs. Please use compression stockings daily. Put them on first thing in the morning. Please use your CPAP machine at night. Follow-up Provider: Tracie Velazquez Follow-up with PCP in: 1 week Denita Li DO 05/04/17 1347: Discharge Instructions Attending's Statement The patient was seen and examined together with Dr. Gerardo on 05/04/17 and I agree with the history, exam and plan as outlined in the note above. Jem Gerardo DO May 04, 2017 11:49 Denita Li DO May 04, 2017 13:47
--- NOTE | 2017-05-04 13:49 | NUR ---
Pt discharged home at 1349hrs Pt has been stable, he has been off O2 since approx 0830hrs this am and sats have been high 80's to low 90's. He has COPD at baseline and has some level of exertional dyspnea at baseline. He states he feels much better. He complained of pain once today and requested tylenol that has been effective for his pain relief. VS have been stable. He was up walking in the [place] and his O2 maintained in the high 80's. Discharge instructions given written and verbal and pt has follow up appt scheduled with PCP.
--- NOTE | 2017-05-04 19:50 | PCM.DC.MED ---
Discharge Summary Date of Service May 04, 2017 Dates of Hospitalization Date of Hospital Admission May 02, 2017 at 16:04 Date of Discharge: May 04, 2017 Providers: Admitting Physician: Denita Li DO Primary Care Physician: Tracie Velazquez Attending Physician: Denita Li DO Diagnosis at Time of Discharge Diagnosis at Time of Discharge Bilateral Pleural effusion Macrocytic Anemia HTN COPD Procedures XRay, CTs & MRIs X-RAY CHEST ONE VIEW, PORTABLE IMPRESSION: 1. Bilateral pleural effusions, left greater than right, with bibasilar compressive atelectasis or consolidation. Dictated by: Wilfredo Espinoza M.D. on 05/02/2017 at 12:13 Approved by: Wilfredo Espinoza M.D. on 05/02/2017 at 12:15 . ECG 12 Lead Sinus tachycardia; prolonged QT - w/ QTc 531; Premature ventricular complexes. Invasive Procedures PROCEDURE: US GUIDED THORACENTESIS BY REFERRING PHYSICIAN IMPRESSION: Successful ultrasound-guided thoracentesis. Dictated by: Iraj Cardona M.D. on 05/03/2017 at 8:22 Other Diagnostics PROCEDURE: X-RAY CHEST ONE VIEW, PORTABLE IMPRESSION: No pneumothorax, status post left thoracentesis. Decrease in small to moderate left pleural effusion with adjacent atelectasis. Dictated by: Rahul Noel M.D. on 05/02/2017 at 17:30 Brief History Maverick Yusuf is a 76 year old man with a PMH of HTN, COPD, and CAD s/p 3 vessel CABG 2 weeks ago having just discharged from [facility] in [place] on . Patient was admitted for bilateral pleural effusion L>R and placed on BiPap flowing at 2L. Thoracentesis was performed on the L lung, pulling 1000cc of serosanguinous fluid. Fluid studies performed revealing it to be transudative in nature. Patient tolerated well and was placed on high dose diuretics overnight. BiPap removed and patient placed on 2L nasal canula for a few hours before being transitioned to room air. Patient was walked with assistance by PT and tolerated well. Discharged to home with follow up scheduled with PCP. Hospital Course Patient underwent thoracentesis 05/02 with 1000cc drained. Early laboratory evaluation indicative of transudative fluid. High dose diuretics given and patient diuresed overnight. Patient tolerated walk with PT and was discharged home in stable condition. Pleural effusion BL L>R -Thoracentesis of L lung effusion performed 05/02 in the ED draining 1000cc of pleural fluid. -Lasix 40 mg IV BID given - Post thoracentesis performed showing improvement of effusion and no pneumothorax Macrocytic Anemia - Obtained folate, B12 labs. Levels revealed to be normal. HTN, POA -Continued home Lisinopril -Continued home Metoprolol COPD, POA, Chronic. Active -Duoneb q4 PRN -Continue home Spiriva - Continue using Incentive Spirometer Q1H. CAD - Continued lisinopril and metoprolol - monitored HLD - Continued Atorvastatin 5mg Qhs Exam Vital Signs (Last) Date Time Temp Pulse Resp B/P Pulse Ox O2 Delivery O2 Flow Rate FiO2 05/04/17 12:23 36.0 63 24 100/57 90 Room Air 05/04/17 09:24 2.00 05/03/17 23:42 35 Exam Constitutional: Awake and Alert. In No acute distress Head: Normocephalic and atraumatic Eyes: EOMI. Pupils round and reactive to light. Heart: regular rate and rhythm. No murmurs. 2+ edema bilateral peripheral extremities, improved from admission Lungs: Clear to auscultation, no wheeze, rales, or rhonchi ABD: soft, nontender, bowel sounds heard throughout. Protuberant Musculoskeletal: Moves all extremities appropriately. Ambulating. Skin: Chronic venous skin changes on bilateral lower extremities. Healing midsternal scar from recent CABG that is draining serosanguinous fluid, with no signs of infection. Recent incision site on Left anterior forearm that runs the length of his forearm that is mildly erythematous, but otherwise has no signs of infection. Otherwise no rash. Neuro: CN II-XII intact, no focal deficits. Psych: Appropriate Mood and affect. Test 05/02/17 11:43 05/02/17 14:13 05/02/17 17:53 05/02/17 22:15 Prothrombin Time 11.1sec (8.1-12.5) Prothromb Time International Ratio 1.04ratio Magnesium Level 2.1mg/dL (1.6-2.6) Pro-B-Type Natriuretic Peptide 918.8pg/mL (0-486) Procalcitonin 0.13ng/mL (0.00-0.08) Lactic Acid Level 1.3mmol/L (0.4-2.0) Body Fluid Source Pleural fluid Body Fluid Color Red (Clear) Body Fluid Appearance Cloudy Body Fluid WBC 113/mm3 Body Fluid RBC 50471/mm3 Body Fluid Polynuclear WBCs 21% Body Fluid Lymphocytes 57% Body Fluid Monocytes 17% Body Fluid Eosinophils 5% Body Fluid Basophils 0% Body Fluid Lactate Dehydrogenase 340U/L Body Fluid Cholesterol 46mg/dL (.) Pleural Fluid Total Protein 3.3g/dL Urine Color Yellow (YELLOW) Urine Appearance Clear (CLEAR,HAZY) Urine pH 7.0 (5.0-8.0) Urine Specific [place] 1.015 (1.003-1.035) Urine Protein Negativemg/dL (NEG,TRACE) Urine Glucose (UA) Negativemg/dL (NEGATIVE) Urine Ketones Negativemg/dL (NEGATIVE) Urine Occult Blood Negative (NEGATIVE) Urine Nitrite Negative (NEGATIVE) Urine Bilirubin Negative (NEGATIVE) Urine Urobilinogen 1.0mg/dL (NORMAL) Urine Leukocyte Esterase Negative (NEGATIVE) Urine RBC 0-2/hpf (0-2) Urine WBC 0-5/hpf (0-5) Urine Epithelial Cells Occasional/hpf (NONE-MOD) Urine Crystals None seen (NONE SEEN) Urine Bacteria None/hpf (NONE-FEW) Urine Hyaline Casts Rare/lpf (NONE) Urine Granular Casts None seen (NONE SEEN) Urine Waxy Casts None seen (NONE SEEN) Urine Red Blood Cell Casts None seen (NONE SEEN) Urine White Blood Cell Casts None seen (NONE SEEN) Urine Mucus None seen (None Seen) Urine Trichomonas None seen (NONE SEEN) Urine Yeast None (NONE SEEN) Urinalysis Comment None Urine Culture Reflexed Not indicated Test 05/03/17 07:25 05/03/17 15:10 05/04/17 03:55 Neutrophils (%) (Auto) 75.3% (40-74) Lymphocytes (%) (Auto) 11.1% (14-46) Monocytes (%) (Auto) 8.1% (4-12) Eosinophils (%) (Auto) 4.8% (0-5) Basophils (%) (Auto) 0.2% (0-3) Vitamin B12 Level 639pg/mL (211-946) Folate 9.3ng/mL (>3.0) Troponin T 0.053ug/L (0.0-0.011) White Blood Count 9.0th/mm3 (3.8-10.1) Red Blood Count 3.20mil/mm3 (4.40-5.80) Hemoglobin 10.3g/dL (13.8-17.2) Hematocrit 32.0% (41.0-50.0) Mean Corpuscular Volume 100.0fL (81-100) Mean Corpuscular Hemoglobin 32.2pg (27.0-35.0) Mean Corpuscular Hemoglobin Concent 32.2% (32.0-37.0) Red Cell Distribution Width 15.4% (12.3-15.4) Platelet Count 417bil/L (150-400) Sodium Level 134mEq/L (134-144) Potassium Level 4.1mEq/L (3.5-5.2) Chloride Level 94mEq/L (97-108) Carbon Dioxide Level 29mmol/L (18-29) Blood Urea Nitrogen 17mg/dL (8-27) Creatinine 0.65mg/dL (0.76-1.27) Estimat Glomerular Filtration Rate 127mL/min (>59) Glucose Level 109mg/dL (60-99) Calcium Level 8.6mg/dL (8.5-10.1) Total Bilirubin 0.6mg/dL (0.0-1.2) Aspartate Amino Transf (AST/SGOT) 49U/L (0-50) Alanine Aminotransferase (ALT/SGPT) 55U/L (0-44) Alkaline Phosphatase 66U/L (25-160) Total Protein 5.7g/dL (6.4-8.4) Albumin 2.6g/dL (3.4-5.0) Microbiology Results Nasopharyngeal PCR - negative Blood Cultures Pending Discharge Medications Discharge Medications Aspirin (Aspirin) 81 Mg Tablet 81 MG PO DAILY (Reported) Beclomethasone Dipropionate (Qvar) 8.7 Gm Aer.w.adap 1 PUFF INHALATION BID ( Reported) Lisinopril (Lisinopril) 20 Mg Tablet 40 MG PO QPM (Reported) Lovastatin (Lovastatin) 20 Mg Tablet 20 MG PO HS (Reported) Metoprolol Succinate ER (Metoprolol Succinate ER) 25 Mg Tab.er.24h 12.5 MG PO DAILY (Reported) Tiotropium Boomer (Spiriva) 18 Mcg Cap.w.dev 18 MCG IH DAILY (Reported) As needed Albuterol HFA (Proair HFA) 8.5 Gm Hfa.aer.ad 2 PUFFS INHALATION Q4H PRN PRN For Shortness of Breath (Reported) Nitroglycerin SL (Nitroglycerin SL) 0.4 Mg Tab.subl 0.4 MG SL Q5MIN PRN PRN For Chest Pain (Reported) Followup Plan Disposition: Home Follow-up plan Follow up with PCP in 1 week. Discharge Diet: Low fat, Low Sodium Discharge Activity: Limited until seen by PCP Patient Instructions Please limit your salt intake. This will cause you to hold onto fluid in your body and lungs. Please use compression stockings daily. Put them on first thing in the morning. Please use your CPAP machine at night. Follow-up Provider: Tracie Velazquez Follow-up with PCP in: 1 week Time spent 35 minutes coordinating plan, preparing discharge notes, and discussing with patient. Attending Statement The patient was seen and examined together with Dr. Gerardo on 05/04/17 and I have added additional information to the note above. copies to: Tracie Velazquez Anthony P DO May 04, 2017 19:50 Denita Li DO May 05, 2017 14:28
--- NOTE | 2017-05-05 16:37 | NUR ---
Follow up phone for CHF patients Date: 05/05/17 Time: 7892 Information Discussed: Pt feeling well, denies SOB, maintaining a low sodium diet and fluid restriction. Pt will start daily weights tomorrow. Questions patient had:
== END 2017-05-04 13:45 | disposition home or self-care (01) | DRG 188 ==
LOC: SED 10:45 → CCU 16:04 → PCC 21:14
PROVIDERS: ADMIT Neuromusculoskeletal Medicine & OMM; ATTEND Neuromusculoskeletal Medicine & OMM
PROC: 0W9B3ZZ Drainage of Left Pleural Cavity, Percutaneous Approach (ICD-10-PCS; principal; 2017-05-02)
PROC: 4A033R1 Measurement of Arterial Saturation, Peripheral, Percutaneous Approach (ICD-10-PCS; 2017-05-02)
DX: J90 Pleural effusion, not elsewhere classified (principal); J44.9 Chronic obstructive pulmonary disease, unspecified; I10 Essential (primary) hypertension; I25.10 Atherosclerotic heart disease of native coronary artery without angina pectoris; Z95.1 Presence of aortocoronary bypass graft; E78.5 Hyperlipidemia, unspecified; G47.00 Insomnia, unspecified; D64.9 Anemia, unspecified

== ENCOUNTER 2017-07-01 18:50 | Emergency (ER) | payer MEDICARE ==
[~2017-07-01] VITALS: Ht 177.8 cm; Wt 109.1 kg
[~2017-07-01 18:50] MED LIST changes: -HYDR25TA4 PO; +METO-386 PO; -METO25TA99 PO; +NITR0.4T38 SL; -NITR0.4T6 SL
[2017-07-01 18:52] VITALS: BP 166/85; PULSE 101; RESP 24; O2SAT 97
--- NOTE | 2017-07-01 19:04 | ED.REPORT ---
HPI-Chest Pain 40 and Over Date of Service Jul 01, 2017 ED Provider: Nabil Colindres MD Pt is a 77 y/o male with a history of CABGx3, COPD, hypertension, and afib who presents to the ED c/o intermittent, sharp right-sided chest pain onset today. He states that his pain occurs when he moves his arm. Additional symptoms include back pain and cough. Pt has an appointment with Dr. Mariano Bullard at [facility] in 2 days to check the fluid in his left lung. Nursing Notes Stated Complaint: CHEST PAIN Chief Complaint: Chest Pain Nursing Notes Reviewed: Yes Allergies: Coded Allergies: No Known Allergies (Verified Allergy, Unknown, 05/02/17) Scheduled Aspirin (Aspirin) 81 Mg Tablet 81 MG PO DAILY Beclomethasone Dipropionate (Qvar) 8.7 Gm Aer.w.adap 1 PUFF INHALATION BID Lisinopril (Lisinopril) 20 Mg Tablet 40 MG PO QPM Lovastatin (Lovastatin) 20 Mg Tablet 20 MG PO HS Metoprolol Succinate ER (Metoprolol Succinate ER) 25 Mg Tab.er.24h 12.5 MG PO DAILY Tiotropium [place] (Spiriva) 18 Mcg Cap.w.dev 18 MCG IH DAILY Scheduled PRN Albuterol HFA (Proair HFA) 8.5 Gm Hfa.aer.ad 2 PUFFS INHALATION Q4H PRN PRN For Shortness of Breath Nitroglycerin SL (Nitroglycerin SL) 0.4 Mg Tab.subl 0.4 MG SL Q5MIN PRN PRN For Chest Pain General Time Seen by MD: 19:03 Chief Complaint Chest pain Hx Obtained From: Patient Arrived By: Walk-in Sudden in Onset?: Yes Onset Occurred: 5 - 8 hours ago Symptom Duration: Intermittent Location: : Chest right Quality: Painful Radiation: : Arm right Severity: Current: Mild Severity: Maximum: Moderate Recent Healthcare: Recent doctor visit Similar Sx Previous: No Past Medical History Past Medical History Notes: Had stress test (04/16/17): Stress test impression below: Abnormal study. Moderate to large reversible perfusion defect involving the mid to distal anteroseptal myocardium as well as the apex, in keeping with ischemia. Associated decreased wall thickening and segmental hypokinesis. Decreased exercise capacity. Normal left ventricle stress ejection fraction. Past Medical History Hypertension Hyperlipidemia COPD Unstable angina NSTEMI Reports: Coronary artery disease Past Surgical History triple bypass Reports: Cholecystectomy Family History Noncontributory Smoking History Former Smoker Social History Alcohol Use: "Social" Drug Use: Denies drug use Ambulatory Status Independent Review of Systems Respiratory: Reports: Non-productive cough Cardiovascular: Reports: Chest pain (R-sided) Musculoskeletal: Reports: Back pain Complete sys rev & neg: except as marked. Physical Exam Initial Vital Signs Vital Signs (First) Date Time Temp Pulse Resp B/P Pulse Ox O2 Delivery O2 Flow Rate FiO2 07/01/17 18:52 36.8 101 24 166/85 97 Room Air Initial VS: Reviewed Head / Eyes: Atraumatic, Normocephalic Neck: Supple, Full range of motion Extremities: Vascular intact, Neuro intact, No swelling, No tenderness Skin: Warm, Dry, No cyanosis Neurologic: Alert, Oriented, Nonfocal Psychiatric: Mood/affect normal, Behavior normal, Normal thought content General/Constitutional: Awake, Alert Respiratory / Chest: Atraumatic, Breath sounds NL, Breath sounds = bilat, No respiratory distress Cardiovascular: Heart rate NL, Regular rhythm, Heart sounds NL Lower Ext Edema: Positive: Bilateral 1+ Abdomen: Soft, Non-tender Interpretation & Diagnostics Lab Results Interpretation Result Diagram: 07/01/17191007/01/171910 Test 07/01/17 19:11 White Blood Count 9.1th/mm3 (3.8-10.1) Red Blood Count 4.20mil/mm3 (4.40-5.80) Hemoglobin 13.5g/dL (13.8-17.2) Hematocrit 40.7% (41.0-50.0) Mean Corpuscular Volume 96.9fL (81-100) Mean Corpuscular Hemoglobin 32.1pg (27.0-35.0) Mean Corpuscular Hemoglobin Concent 33.2% (32.0-37.0) Red Cell Distribution Width 15.3% (12.3-15.4) Platelet Count 243bil/L (150-400) Neutrophils (%) (Auto) 58.5% (40-74) Lymphocytes (%) (Auto) 26.4% (14-46) Monocytes (%) (Auto) 9.1% (4-12) Eosinophils (%) (Auto) 5.6% (0-5) Basophils (%) (Auto) 0.2% (0-3) Sodium Level 133mEq/L (134-144) Potassium Level 4.4mEq/L (3.5-5.2) Chloride Level 94mEq/L (97-108) Carbon Dioxide Level 26mmol/L (18-29) Blood Urea Nitrogen 18mg/dL (8-27) Creatinine 0.72mg/dL (0.76-1.27) Estimat Glomerular Filtration Rate 112mL/min (>59) Glucose Level 117mg/dL (60-99) Calcium Level 9.3mg/dL (8.5-10.1) Magnesium Level 2.0mg/dL (1.6-2.6) Total Bilirubin 0.4mg/dL (0.0-1.2) Aspartate Amino Transf (AST/SGOT) 20U/L (0-50) Alanine Aminotransferase (ALT/SGPT) 15U/L (0-44) Alkaline Phosphatase 76U/L (25-160) Troponin T < 0.010ug/L (0.0-0.011) Total Protein 7.7g/dL (6.4-8.4) Albumin 4.4g/dL (3.4-5.0) Hold Dean Top Tube Received (Received) ECG Interpretation ECG Interpretation: Sinus rhythm, rate 86 No acute changes Time: 19:33 Interpreted by: ED physician X-Ray Chest Interpretation Chest Xray Interpretation: IMPRESSION: Unchanged left lower lobe effusion and superimposed pneumonia and/or atelectasis cannot be excluded. Dictated by: Graciela Mathews M.D. on 07/01/2017 at 19:53 Approved by: Graciela Mathews M.D. on 07/01/2017 at 19:57 View: Portable, 1 view Interpretation / Wet Read by: Interpret - Radiologist Re-Eval/Medical Decision Med Decision/Clinical Course This gentleman underwent a median sternotomy and cardiac bypass with radial arterial grafting just within the past couple of months. He had complicating infection of the sternum which has not completely healed but he is no longer taking antibiotics. He scheduled for a pleurocentesis in the coming week for a chronic Left pleural effusion. The symptoms tonight were mildly concerning to him but because of all that has been happening; he thought he better get it checked. All the objective data today are either stable or reassuring. His symptoms have resolved and I do not believe any further intervention is necessary at this moment Source of Hx: Old records Time of Eval: 21:04 Patient Status: Condition improved Re-Evaluation/Progress Note: Patient rechecked. Discussed plan for discharge. Patient understands and agrees with plan. Follow-up and return to ED warnings given. All questions addressed. Counseled Regarding: Diagnosis, Lab results, Need for follow-up, When/why to return to ED Discharge & Departure Primary Impression: Chest pain Disposition: Home Discharge Condition All VS Reviewed: Yes Condition: Stable Patient Instructions: Chest Pain (ED) Additional Instructions: Thank you for entrusting us with your care today. Your examination, including X-ray, EKG, were reassuring. There is no apparent dangerous cause for your symptoms. Follow-up as planned this coming week. Please return to the emergency department for any new or worsening symptoms, including difficulty breathing, numbness/tingling, or weakness. Referrals: Tracie Velazquez (PCP) Scribe Attestation Portions of this note were transcribed by Marlen Arias. I, Dr. Colindres, personally performed the history, physical exam and medical decision-making; I reviewed and confirmed the accuracy of the information in the transcribed note. copies to: Tracie Velazquez Kirk H MD Jul 01, 2017 19:04 Marlen Arias Jul 01, 2017 19:10
[2017-07-01 19:15] LABS: BASOPHILS % (AUTO) 0.2 % (0-3); EOSINOPHILS % (AUTO) 5.6 % (0-5); MONOCYTES % (AUTO) 9.1 % (4-12); Mean Corpuscular Hemoglobin 32.1 pg (27.0-35.0); Mean Corpuscular Volume 96.9 fL (81-100); NEUTROPHILS % (AUTO) 58.5 % (40-74); Platelet Count 243 bil/L (150-400)
[2017-07-01 19:38] LABS: TROPONIN T < 0.010 ug/L (0.0-0.011)
--- NOTE | 2017-07-01 19:59 | DRSVH ---
PROCEDURE: X-RAY CHEST ONE VIEW, PORTABLE ([id number]) INDICATIONS: chest pain TECHNIQUE: One view of the chest was acquired. COMPARISON: [facility], CR, XR CHEST 2VW, 06/25/2017, 9:46. FINDINGS: Surgical changes and devices: Sternal wires and fractured wires are unchanged. Lungs and pleura: The left lower lobe opacity and blunting of the costophrenic angle. Mediastinum: Mediastinal contours appear normal. Heart size is normal. Bones and chest wall: No suspicious bony lesions. Overlying soft tissues appear unremarkable. IMPRESSION: Unchanged left lower lobe effusion and superimposed pneumonia and/or atelectasis cannot b e excluded. Dictated by: Graciela Mathews M.D. on 07/01/2017 at 19:53 Approved by: Graciela Mathews M.D. on 07/01/2017 at 19:57
[2017-07-01 20:33] VITALS: BP 148/75; PULSE 86; RESP 21; O2SAT 97
[2017-07-01 21:13] VITALS: BP 144/76; PULSE 80; RESP 18; O2SAT 98
== END 2017-07-01 21:14 | disposition home or self-care (01) ==
LOC: SED 18:50
DX: R07.9 Chest pain, unspecified (principal); I10 Essential (primary) hypertension; J44.9 Chronic obstructive pulmonary disease, unspecified; I48.91 Unspecified atrial fibrillation; E78.5 Hyperlipidemia, unspecified; I25.2 Old myocardial infarction; I25.10 Atherosclerotic heart disease of native coronary artery without angina pectoris; Z79.51 Long term (current) use of inhaled steroids; Z79.82 Long term (current) use of aspirin; Z95.1 Presence of aortocoronary bypass graft; Z87.891 Personal history of nicotine dependence; Z90.49 Acquired absence of other specified parts of digestive tract